=== PATIENT | female | born 1940 | race Caucasian/White ===

== ENCOUNTER 2017-05-03 19:01 | Emergency (ER) | payer MEDICARE, BC ==
[~2017-05-03] VITALS: Ht 160 cm; Wt 91.5 kg
[~2017-05-03 19:01] MED LIST: ASPI81 PO; DUONI NEB; LEVA500T PO; LEVO.125 PO; PRED10 PO; SYMB160A INH; Z.0.OXYGENDME NC
[2017-05-03 19:14] VITALS: BP 120/78; PULSE 104; RESP 22; TEMP 98; O2SAT 94
[2017-05-03 19:20] VITALS: O2SAT 94
[2017-05-03] MEDS ORDERED: SODIUM CHLORIDE 0.9% FLUSH 10 ML FLUSH IVF PRN (19:30)
--- NOTE | 2017-05-03 19:41 | PD ---
HPI Chief Complaint: Cardiac Complaint Time Seen by Provider: 19:29 Travel History International Travel<30 days: No Contact w/Intl Traveler<30days: No Traveled to known affect area: No History of Present Illness HPI Patient is a 77-year-old female presenting to emergency for evaluation of SVT. Patient felt tachycardic after eating chocolate and caffeine today. She normally doesn't eat this, she is been avoiding it due to a history of SVT. EMS reports that her heart rate was 169, she was given adenosine 6 mg IV 1, heart rate lowered to 118. Patient has a history of hypersensitivity pneumonitis, she is oxygen dependent. She has baseline shortness of breath. Her past medical history is also significant for hypothyroidism. She is a patient of Dr. Madden and Dr. Fair. She denied any chest pain, nausea, vomiting, abdominal pain, radiation of the pain, headache or dizziness. PFSH Past Medical History Arthritis: Yes (in hands and knees) Heart Rhythm Problems: Yes (SVT) Cancer: Yes (ovarian) Chemotherapy: Yes Diminished Hearing: No Genitourinary: No Immune Disorder: No Musculoskeletal: Yes Neurologic: No Psychiatric: No Reproductive: No Respiratory: Yes (Hypersensitivity Pneumonitis) Radiation Therapy: No Thyroid Disease: Yes (hypothyroidism) Past Surgical History Gynecologic Surgery: Yes (2000 oviarian cancer) Hysterectomy: Yes (hx ovarian Ca 1999) Social History Alcohol Use: No Tobacco Use: Yes (3/ PPD) Substance Use: No Allergies-Medications (Allergen,Severity, Reaction): Coded Allergies: Azithromycin (Verified Allergy, Severe, 05/03/17) Reported Meds & Prescriptions Reported Meds & Active Scripts Active Reported Flonase Nasal [place] (Fluticasone Nasal [place]) 50 Mcg/Act [place] 50 Mcg EACH NARE DAILY Latanoprost Opth Drops (Latanoprost) 0.005% Drops 1 Drop EACH EYE HS Refrigerate until opened. Align (Lactobacillus Rhamnosus (GG)) 4 Mg Cap 4 Mg PO DAILY Ibandronate (Ibandronate Sodium) 150 Mg Tab 150 Mg PO Q28D Ethambutol (Ethambutol HCl) 400 Mg Tab 1 Tab PO BID Rifabutin 150 Mg Cap 1 Cap PO BID Spiriva Respimat Inh (Tiotropium Inh) 2.5 Mcg/Act Aero 2 Puff INH DAILY 2.5 mcg = 1 inhalation Metoprolol Tartrate 25 Mg Tab 12.5 Mg PO BID Advair Diskus Inh (Fluticasone-Salmeterol Inh) 250-50 Mcg/Blist Aer 1 Puff INH BID Rinse mouth after use. Prednisone 10 Mg Tab 15 Mg PO DAILY Synthroid (Levothyroxine Sodium) 112 Mcg Tab 112 Mcg PO DAILY Sulfamethoxazole-Trimethoprim 800-160 Mg Tab 1 Tab PO ZMOWEFR Review of Systems Except as stated in HPI: all other systems reviewed are Neg Cardiovascular: Positive: Palpitations, Tachycardia Respiratory: Positive: Shortness of Breath Physical Exam Narrative GENERAL: Overweight, well-developed, alert elderly female. Resting comfortably , she does not appear to be in no acute distress. SKIN: Warm and dry. HEAD: Atraumatic. Normocephalic. EYES: Pupils equal and round. No scleral icterus. No injection or drainage. ENT: No nasal bleeding or discharge. Mucous membranes pink and moist. NECK: Trachea midline. No JVD. CARDIOVASCULAR: Tachycardic. RESPIRATORY: No accessory muscle use. Clear to auscultation. Breath sounds diminished and equal bilaterally. GASTROINTESTINAL: Abdomen soft, non-tender, nondistended. Hepatic and splenic margins not palpable. MUSCULOSKELETAL: Extremities without clubbing, cyanosis, or edema. No obvious deformities. NEUROLOGICAL: Awake and alert. No obvious cranial nerve deficits. Motor grossly within normal limits. Five out of 5 muscle strength in the arms and legs. Normal speech. PSYCHIATRIC: Appropriate mood and affect; insight and judgment normal. Data Data Last Documented VS Vital Signs Date Time Temp Pulse Resp B/P Pulse Ox O2 Delivery O2 Flow Rate FiO2 05/03/17 19:30 94 Nasal Cannula 4 05/03/17 19:14 98.0 104 22 120/78 Orders Electrocardiogram (05/03/17 19:17) Ckmb (Isoenzyme) Profile (05/03/17 19:17) Complete Blood Count With Diff (05/03/17 19:17) Comprehensive Metabolic Panel (05/03/17 19:17) Magnesium (Mg) (05/03/17 19:17) Prothrombin Time / Inr (Pt) (05/03/17 19:17) Act Partial Throm Time (Ptt) (05/03/17 19:17) Troponin I (05/03/17 19:17) Chest, Single Ap (05/03/17 19:17) Ecg Monitoring (05/03/17 19:17) Bilateral Bp Monitoring (05/03/17 19:17) Iv Access Insert/Monitor (05/03/17 19:17) Oximetry (05/03/17 19:17) Oxygen Administration (05/03/17 19:17) Sodium Chloride 0.9% Flush (Ns Flush) (05/03/17 19:30) Labs Laboratory Tests Test 05/03/17 19:30 White Blood Count 8.8 TH/MM3 Red Blood Count 4.46 MIL/MM3 Hemoglobin 12.5 GM/DL Hematocrit 37.9 % Mean Corpuscular Volume 85.1 FL Mean Corpuscular Hemoglobin 28.1 PG Mean Corpuscular Hemoglobin 33.0 % Concent Red Cell Distribution Width 14.8 % Platelet Count 222 TH/MM3 Mean Platelet Volume 7.0 FL Neutrophils (%) (Auto) 65.2 % Lymphocytes (%) (Auto) 25.5 % Monocytes (%) (Auto) 8.0 % Eosinophils (%) (Auto) 1.1 % Basophils (%) (Auto) 0.2 % Neutrophils # (Auto) 5.7 TH/MM3 Lymphocytes # (Auto) 2.2 TH/MM3 Monocytes # (Auto) 0.7 TH/MM3 Eosinophils # (Auto) 0.1 TH/MM3 Basophils # (Auto) 0.0 TH/MM3 CBC Comment DIFF FINAL Differential Comment Prothrombin Time 11.2 SEC Prothromb Time International 1.0 RATIO Ratio Activated Partial 25.9 SEC Thromboplast Time Sodium Level 141 MEQ/L Potassium Level 3.7 MEQ/L Chloride Level 106 MEQ/L Carbon Dioxide Level 24.9 MEQ/L Anion Gap 10 MEQ/L Blood Urea Nitrogen 16 MG/DL Creatinine 0.81 MG/DL Estimat Glomerular Filtration 69 ML/MIN Rate Random Glucose 95 MG/DL Calcium Level 8.7 MG/DL Magnesium Level 1.8 MG/DL Total Bilirubin 0.5 MG/DL Aspartate Amino Transf 21 U/L (AST/SGOT) Alanine Aminotransferase 17 U/L (ALT/SGPT) Alkaline Phosphatase 66 U/L Total Creatine Kinase 29 U/L Troponin I LESS THAN 0.02 NG/ML Total Protein 6.8 GM/DL Albumin 3.3 GM/DL MDM Medical Decision Making Medical Screen Exam Complete: Yes Emergency Medical Condition: Yes Interpretation(s) Last Impressions Chest X-Ray 05/03/171916 Signed Impressions: Service Date/Time: Wednesday, May 03, 2017 19:23 - CONCLUSION: Interstitial lung disease. Mitchell Goddard MD Laboratory Tests Test 05/03/17 19:30 White Blood Count 8.8 TH/MM3 Red Blood Count 4.46 MIL/MM3 Hemoglobin 12.5 GM/DL Hematocrit 37.9 % Mean Corpuscular Volume 85.1 FL Mean Corpuscular Hemoglobin 28.1 PG Mean Corpuscular Hemoglobin 33.0 % Concent Red Cell Distribution Width 14.8 % Platelet Count 222 TH/MM3 Mean Platelet Volume 7.0 FL Neutrophils (%) (Auto) 65.2 % Lymphocytes (%) (Auto) 25.5 % Monocytes (%) (Auto) 8.0 % Eosinophils (%) (Auto) 1.1 % Basophils (%) (Auto) 0.2 % Neutrophils # (Auto) 5.7 TH/MM3 Lymphocytes # (Auto) 2.2 TH/MM3 Monocytes # (Auto) 0.7 TH/MM3 Eosinophils # (Auto) 0.1 TH/MM3 Basophils # (Auto) 0.0 TH/MM3 CBC Comment DIFF FINAL Differential Comment Prothrombin Time 11.2 SEC Prothromb Time International 1.0 RATIO Ratio Activated Partial 25.9 SEC Thromboplast Time Sodium Level 141 MEQ/L Potassium Level 3.7 MEQ/L Chloride Level 106 MEQ/L Carbon Dioxide Level 24.9 MEQ/L Anion Gap 10 MEQ/L Blood Urea Nitrogen 16 MG/DL Creatinine 0.81 MG/DL Estimat Glomerular Filtration 69 ML/MIN Rate Random Glucose 95 MG/DL Calcium Level 8.7 MG/DL Magnesium Level 1.8 MG/DL Total Bilirubin 0.5 MG/DL Aspartate Amino Transf 21 U/L (AST/SGOT) Alanine Aminotransferase 17 U/L (ALT/SGPT) Alkaline Phosphatase 66 U/L Total Creatine Kinase 29 U/L Troponin I LESS THAN 0.02 NG/ML Total Protein 6.8 GM/DL Albumin 3.3 GM/DL Vital Signs Date Time Temp Pulse Resp B/P Pulse Ox O2 Delivery O2 Flow Rate FiO2 05/03/17 19:20 94 Nasal Cannula 4 05/03/17 19:20 94 Nasal Cannula 4 05/03/17 19:14 98.0 104 22 120/78 94 Differential Diagnosis SVT versus metabolic abnormality versus ACS versus other Narrative Course Patient is a 77-year-old female with a history of SVT presenting to emergency for evaluation after an episode of SVT. Patient medicated to drinking a caffeinated soda and eating dark chocolate one hour prior to the SVT episode. She normally avoids caffeinated foods because of SVT. Patient's heart rate was controlled after 1 6 mg dose of adenosine in the field. She continued to be mildly tachycardic on arrival. She had no complaints of chest pain or shortness of breath. Patient has a history of hyperactive pneumonitis and is on oxygen at home. Labs and imaging ordered and pending. Chest x-ray shows interstitial lung disease CBC is unremarkable Chemistry is unremarkable Cardiac enzymes are negative Coags are unremarkable Discussed with patient that it is preferable to keep her in the emergency Department under observation. Patient elected not to stay. AMA: The risks of leaving against medical advice without further evaluation treatment were discussed with the patient. These risks include cardiac dysfunction, cardiac dysrhythmia, possible heart attack, possible stroke or . The patient indicated understanding of these risks and appeared to have the capacity to make this decision. Diagnosis Primary Impression: Left against medical advice Disposition: 07 AGAINST MEDICAL ADVICE Avis Oliver May 03, 2017 19:41
--- NOTE | 2017-05-03 19:45 | RADRPT ---
EXAM DATE/TIME: 05/03/2017 19:23 [facility] COMPARISON: No previous studies available for comparison. INDICATIONS : Tachycardia. MEDICAL HISTORY : Chronic obstructive pulmonary disease. SURGICAL HISTORY : None. ENCOUNTER: Subsequent ACUITY: 1 day PAIN SCORE: 0/10 LOCATION: Bilateral chest FINDINGS: There is cardiomegaly and diffuse interstitial prominence. Mild hyperaeration. Multiple remote appear ing right sided rib fractures. No consolidation or effusion. CONCLUSION: Interstitial lung disease. Mitchell Goddard MD on May 03, 2017 at 19:44 Board Certified Radiologist. This report was verified electronically.
[2017-05-03 19:52] LABS: AUTOMATED NEUTROPHIL # 5.7 TH/MM3 (1.8-7.7); BASOPHIL % 0.2 % (0.0-2.0); EOSINOPHIL # 0.1 TH/MM3 (0-0.4); EOSINOPHIL % 1.1 % (0.0-4.0); HEMATOCRIT 37.9 % (35.0-46.0); HEMO FLAGS DIFF FINAL; LYMPH % 25.5 % (9.0-44.0); LYMPHOCYTE # 2.2 TH/MM3 (1.0-4.8); MEAN CELL VOLUME 85.1 FL (80.0-100.0); MEAN CORPUSCULAR HEMOGLOBIN 28.1 PG (27.0-34.0); NEUT % 65.2 % (16.0-70.0); PLATELET COUNT 222 TH/MM3 (150-450); RED BLOOD COUNT 4.46 MIL/MM3 (4.00-5.30); RED CELL DISTRIBUTION WIDTH 14.8 % (11.6-17.2); WHITE BLOOD COUNT 8.8 TH/MM3 (4.0-11.0)
[2017-05-03 20:07] LABS: APTT (PATIENT) 25.9 SEC (24.3-30.1); PROTHROMBIN TIME - PATIENT 11.2 SEC (9.8-11.6)
[2017-05-03 20:08] LABS: ANION GAP 10 MEQ/L (5-15); AST (GOT) 21 U/L (15-37); BICARBONATE 24.9 MEQ/L (21.0-32.0); BLOOD UREA NITROGEN 16 MG/DL (7-18); CHLORIDE 106 MEQ/L (98-107); GLOMERULAR FILTRATION RATE 69 ML/MIN (>89); MAGNESIUM 1.8 MG/DL (1.5-2.5); POTASSIUM 3.7 MEQ/L (3.5-5.1); SODIUM (NA) 141 MEQ/L (136-145)
[2017-05-03 20:09] LABS: ALT (GPT) 17 U/L (10-53)
[2017-05-03] MEDS ORDERED: LATA0.002 EACH EYE (20:09)
[2017-05-03] MEDS ORDERED: RIFA1CAP9 PO (20:09)
[2017-05-03] MEDS ORDERED: ETHA400T PO (20:09)
[2017-05-03] MEDS ORDERED: SYNT112T PO (20:09)
[2017-05-03] MEDS ORDERED: METO25TA3 PO (20:09)
[2017-05-03] MEDS ORDERED: SULF1TAB23 PO (20:09)
[2017-05-03] MEDS ORDERED: IBAN150T3 PO (20:09)
[2017-05-03] MEDS ORDERED: ALIG4CAP PO (20:09)
[2017-05-03] MEDS ORDERED: ADVA250A INH (20:09)
[2017-05-03] MEDS ORDERED: FLUT1SPR5 EACH NARE (20:09)
[2017-05-03] MEDS ORDERED: TIOT12.9 INH (20:09)
[2017-05-03] MEDS ORDERED: PRED10 PO (20:09)
[2017-05-03 20:13] LABS: ALKALINE PHOSPHATASE 66 U/L (45-117); TOTAL BILIRUBIN ADULT 0.5 MG/DL (0.2-1.0)
[2017-05-03 20:14] LABS: CREATINE KINASE 29 U/L (26-192)
--- NOTE | 2017-05-04 15:04 | EKG ---
Date Performed: 05/03/2017 Time Performed: 19:30:30 PTAGE: 77 years EKG: SINUS TACHYCARDIA POSSIBLE LEFT ATRIAL ENLARGEMENT PATTERN CONSISTENT WITH PULMONARY DISEAS E LEFT ANTERIOR FASCICULAR BLOCK Compared to previous tracing, the patient is now tachycardic ABNORMA L ECG PREVIOUS TRACING : 09/04/2006 10.20 DOCTOR: Lisa Toussaint Interpretating Date/Time 05/04/2017 14:58:34
== END 2017-05-03 22:35 | disposition left against medical advice (07) ==
LOC: NEPC 19:01
DX: I47.1 Supraventricular tachycardia (principal); R06.02 Shortness of breath; R00.0 Tachycardia, unspecified; E03.9 Hypothyroidism, unspecified; M13.80 Other specified arthritis, unspecified site; F17.200 Nicotine dependence, unspecified, uncomplicated; Z99.81 Dependence on supplemental oxygen; Z79.51 Long term (current) use of inhaled steroids; Z79.899 Other long term (current) drug therapy
CPT/HCPCS: 71010; 80053; 82550; 83735; 84484; 85025; 85610; 85730; 93005; 99285

== ENCOUNTER 2017-06-15 11:07 | Emergency (ER) | payer MEDICARE, BC ==
[~2017-06-15 11:07] MED LIST changes: +ADVA250A INH; +ALIG4CAP PO; -ASPI81 PO; -DUONI NEB; +ETHA400T PO; +FLUT1SPR5 EACH NARE; +IBAN150T3 PO; +LATA0.002 EACH EYE; -LEVA500T PO; -LEVO.125 PO; +METO25TA3 PO; +RIFA1CAP9 PO; +SULF1TAB23 PO; -SYMB160A INH; +SYNT112T PO; +TIOT12.9 INH; -Z.0.OXYGENDME NC
[2017-06-15 11:10] VITALS: BP 118/76; PULSE 80; RESP 22; TEMP 98.1; O2SAT 92
--- NOTE | 2017-06-15 12:27 | RADRPT ---
EXAM DATE/TIME: 06/15/2017 11:40 [facility] COMPARISON: No previous studies available for comparison. INDICATIONS : Trauma. Fall. Low back pain, worse on the right. RADIATION DOSE: 40.03 CTDIvol (mGy) MEDICAL HISTORY : Chronic obstructive pulmonary disease. Hypertension. Ovarian cancer. SURGICAL HISTORY : Hysterectomy. ENCOUNTER: Initial ACUITY: 1 day PAIN SCALE: 8/10 LOCATION: Right Lumbar spine TECHNIQUE: Volumetric scanning of the lumbar spine was performed. Multiplanar reconstructions in the sagittal, coronal and oblique axial planes were performed. Using automated exposure control and adjustment of the mA and/or kV according to patient size, radiation dose was kept as low as reasonably achievable t o obtain optimal diagnostic quality images. DICOM format image data is available electronically for review and comparison. FINDINGS: VERTEBRAE: An acute compression deformity is seen involving the L4 vertebral body. This involves the inferior en dplate. 10% loss of height. No retropulsion. An old compression deformity is seen involving the infer ior endplate of L3. Remaining vertebral body heights are maintained. ALIGNMENT: No evidence of subluxation. T12-L1: The thecal sac has a normal diameter. No evidence of disc bulge or protrusion. The neural foramina are patent bilaterally. L1-L2: The thecal sac has a normal diameter. No evidence of disc bulge or protrusion. The neural foramina are patent bilaterally. L2-L3: There is a mild broad-based disc bulge. Central canal and lateral recesses are patent. Neural foramin a are patent. Facet arthropathy changes noted. L3-L4: There is a mild broad-based disc bulge. Central canal and lateral recesses are patent. Neural foramin a are patent. Facet arthropathy changes noted. L4-L5: There is a broad-based disc bulge. Moderate ligamentum flavum hypertrophy and bony hypertrophy of the facets. Mild narrowing of the central canal. Anterior to posterior dimension of the thecal space gama sures 9 mm in the midline. Neural foramina are patent. L5-S1: There is disc space narrowing with a broad-based disc osteophyte complex that abuts the left S1 nerve root within the lateral recess. The central canal and right lateral recess are patent. Narrowing of the neural foramina bilaterally but more abundant on the right. CONCLUSION: 1. Acute mild compression deformity involving L4 without retropulsion. 2. Chronic compression deformity of L3. 3. Osteopenia. 4. Degenerative changes as detailed at each level in the above discussion. Jack Lund Jr., MD on June 15, 2017 at 12:20 Board Certified Radiologist. This report was verified electronically.
--- NOTE | 2017-06-15 12:32 | PD ---
HPI Chief Complaint: Respiratory Symptoms Time Seen by Provider: 11:18 Travel History International Travel<30 days: No Contact w/Intl Traveler<30days: No Traveled to known affect area: No History of Present Illness HPI This is a 77-year-old female who has a history of pneumonitis on 5 L of oxygen at home who presents to the emergency department having been in a restaurant when she sits down and missed the chair and landed on her buttocks injuring her back. Her back pain is constant, worse with moving, improved with rest. She denies any numbness or weakness. She did not hit her head and has no other injuries. PFSH Past Medical History Arthritis: Yes (in hands and knees) Heart Rhythm Problems: Yes (SVT) Cancer: Yes (ovarian) Cardiovascular Problems: Yes (HTN, SVT) Chemotherapy: Yes Diminished Hearing: No Endocrine: Yes Genitourinary: No Hypertension: Yes Immune Disorder: No Musculoskeletal: Yes Neurologic: No Psychiatric: No Reproductive: No Respiratory: Yes (LUNGS DEVELOP SCAR TISSUE) Radiation Therapy: No Thyroid Disease: Yes (hypothyroidism) Influenza Vaccination: Yes ?: Not Past Surgical History Gynecologic Surgery: Yes (2000 oviarian cancer) Hysterectomy: Yes (hx ovarian Ca 1999) Other Surgery: Yes Social History Alcohol Use: No Tobacco Use: No (QUIT ) Substance Use: No Allergies-Medications (Allergen,Severity, Reaction): Coded Allergies: azithromycin (Unverified Allergy, Severe, 05/30/17) Reported Meds & Prescriptions Reported Meds & Active Scripts Active Reported Flonase Nasal [place] (Fluticasone Nasal [place]) 50 Mcg/Act [place] 50 Mcg EACH NARE DAILY Latanoprost Opth Drops (Latanoprost) 0.005% Drops 1 Drop EACH EYE HS Refrigerate until opened. Align (Lactobacillus Rhamnosus (GG)) 4 Mg Cap 4 Mg PO DAILY Ibandronate (Ibandronate Sodium) 150 Mg Tab 150 Mg PO Q28D Ethambutol (Ethambutol HCl) 400 Mg Tab 1 Tab PO BID Rifabutin 150 Mg Cap 1 Cap PO BID Spiriva Respimat Inh (Tiotropium Inh) 2.5 Mcg/Act Aero 2 Puff INH DAILY 2.5 mcg = 1 inhalation Metoprolol Tartrate 25 Mg Tab 12.5 Mg PO BID Advair Diskus Inh (Fluticasone-Salmeterol Inh) 250-50 Mcg/Blist Aer 1 Puff INH BID Rinse mouth after use. Prednisone 10 Mg Tab 15 Mg PO DAILY Synthroid (Levothyroxine Sodium) 112 Mcg Tab 112 Mcg PO DAILY Sulfamethoxazole-Trimethoprim 800-160 Mg Tab 1 Tab PO ZMOWEFR Review of Systems Except as stated in HPI: all other systems reviewed are Neg Physical Exam Narrative GENERAL:Well appearing, no acute distress SKIN: Focused skin assessment warm and dry. HEAD: Atraumatic. Normocephalic. EYES: Pupils equal and round. No injection or drainage. ENT: Moist mucous membranes NECK: Trachea midline. CARDIOVASCULAR: Regular rate and rhythm. No murmur appreciated. RESPIRATORY: Clear to auscultation. Breath sounds equal bilaterally. GASTROINTESTINAL: Abdomen soft, non-tender, nondistended. MUSCULOSKELETAL: Tender to palpation over the lower lumbar spine and coccygeal area. NEUROLOGICAL: Awake and alert. No obvious cranial nerve deficits. Moving all extremities. 5 out of 5 strength in the bilateral lower extremities. PSYCHIATRIC: Appropriate mood and affect; insight and judgment normal. Data Data Last Documented VS Vital Signs Date Time Temp Pulse Resp B/P (MAP) Pulse Ox O2 Delivery O2 Flow Rate FiO2 06/15/17 12:12 93 Aerosol Mask 6.00 06/15/17 11:22 22 06/15/17 11:10 98.1 80 118/76 (90) Orders Orders Ct Lumb Spine W/O Contrast (06/15/17 ) Acetamin-Hydrocod 325-5 Mg ([place] 5-325 (06/15/17 12:45) MDM Medical Decision Making Medical Screen Exam Complete: Yes Emergency Medical Condition: Yes Interpretation(s) CT: Acute Mild compression deformity involving L4 Differential Diagnosis Compression fracture, lumbar sprain, contusion Narrative Course This is a 77-year-old female who presents to the emergency department having fallen backwards at a restaurant injuring her low back. Patient has a normal neurologic exam. CT imaging was performed which demonstrates an acute compression deformity at L4 which is mild and a chronic compression deformity at L3. She declined a TLSO brace which I think is reasonable. Patient will be discharged on Lortab and was given referral to neurosurgery of her symptoms don' t improve. Diagnosis Primary Impression: Compression fracture of L4 lumbar vertebra Qualified Codes: S32.040A - Wedge compression fracture of fourth lumbar vertebra, initial encounter for closed fracture Referrals: Brock Castellanos MD Patient Instructions: General Instructions Additional Instructions: If you develop weakness of your legs, difficulty walking, numbness of your legs or your genital or rectal area, loss of your bowel or bladder, or difficulty urinating return to the emergency department immediately. Followup with your primary care physician in one week if your symptoms have not improved. Med/Other Pt SpecificInfo: Prescription(s) given Scripts Hydrocodone-Acetaminophen (Lortab) 5-325 Mg Tab 1 TAB PO Q6H Y for PAIN, #14 TAB 0 Refills Prov: Nataliia Lau MD 06/15/17 Disposition: 01 DISCHARGE HOME Condition: Stable Nataliia Lau MD Jun 15, 2017 12:32
[2017-06-15] MEDS ORDERED: HYDR-3533 PO (12:42)
[2017-06-15] MEDS ORDERED: ACETAMINOPHEN/HYDROcodone 325 MG/5 MG TAB PO ONE (12:45)
[2017-06-15 13:05] VITALS: BP 134/73; PULSE 80; RESP 20; O2SAT 93
[2017-06-15 13:26] VITALS: RESP 20
== END 2017-06-15 13:27 | disposition home or self-care (01) ==
LOC: PHED 11:07
DX: S32.040A Wedge compression fracture of fourth lumbar vertebra, initial encounter for closed fracture (principal); Z99.81 Dependence on supplemental oxygen; I10 Essential (primary) hypertension; E03.9 Hypothyroidism, unspecified; M19.049 Primary osteoarthritis, unspecified hand; M17.9 Osteoarthritis of knee, unspecified; Z85.43 Personal history of malignant neoplasm of ovary; W07.XXXA Fall from chair, initial encounter; Y92.511 Restaurant or cafe as the place of occurrence of the external cause
CPT/HCPCS: 72131; 99284

== ENCOUNTER 2017-06-16 09:04 | Inpatient (IN) | payer MEDICARE, BC ==
[2017-06-16] VITALS (14 sets, daily range): BP systolic 121–139; BP diastolic 66–96; PULSE 64–102; RESP 18–28; TEMP 97.8–99; O2SAT 93–100
[~2017-06-16] VITALS: Ht 170.2 cm; Wt 85.0 kg
[~2017-06-16 09:04] MED LIST changes: +HYDR-3533 PO
[2017-06-16] MEDS ORDERED: SODIUM CHLORID 0.9% 500 ML INJ 500 ML IV ONE (09:30)
[2017-06-16] MEDS: SODIUM CHLORIDE 0.9% FLUSH 10 ML FLUSH IVF PRN ×2 (09:39→13:09)
[2017-06-16 09:50] LABS: BASOPHIL % 0.4 % (0.0-2.0); EOSINOPHIL # 0.1 TH/MM3 (0-0.4); HEMATOCRIT 41.3 % (35.0-46.0); HEMO FLAGS DIFF FINAL; LYMPH % 15.5 % (9.0-44.0); LYMPHOCYTE # 1.3 TH/MM3 (1.0-4.8); MEAN CELL VOLUME 84.6 FL (80.0-100.0); MEAN CORPUSCULAR HEMOGLOBIN 27.5 PG (27.0-34.0); MEAN CORPUSCULAR HGB CONC 32.5 % (32.0-36.0); MONO % 9.3 % (0.0-8.0); NEUT % 73.8 % (16.0-70.0); PLATELET COUNT 214 TH/MM3 (150-450); RED BLOOD COUNT 4.89 MIL/MM3 (4.00-5.30); RED CELL DISTRIBUTION WIDTH 14.8 % (11.6-17.2); WHITE BLOOD COUNT 8.2 TH/MM3 (4.0-11.0)
[2017-06-16 09:54] LABS: APTT (PATIENT) 26.3 SEC (24.3-30.1); PROTHROMBIN TIME - PATIENT 11.4 SEC (9.8-11.6)
--- NOTE | 2017-06-16 09:54 | RADRPT ---
EXAM DATE/TIME: 06/16/2017 09:26 [facility] COMPARISON: CHEST SINGLE AP, May 03, 2017, 19:23. INDICATIONS : Patient complains of shortness of breath MEDICAL HISTORY : None. SURGICAL HISTORY : None. ENCOUNTER: Initial ACUITY: 1 day PAIN SCORE: 0/10 LOCATION: Bilateral chest FINDINGS: Cardiomegaly with mild interstitial edema consistent with congestive failure. There is no pleural ef fusion. There is no consolidation. The portion of the bony skeleton visualized is unremarkable. CONCLUSION: Mild to moderate congestive failure. De Irizarry MD FACR on June 16, 2017 at 9:51 Board Certified Radiologist. This report was verified electronically.
[2017-06-16 10:04] LABS: ANION GAP 8 MEQ/L (5-15); AST (GOT) 24 U/L (15-37); BICARBONATE 26.4 MEQ/L (21.0-32.0); BLOOD UREA NITROGEN 9 MG/DL (7-18); CHLORIDE 104 MEQ/L (98-107); GLOMERULAR FILTRATION RATE 71 ML/MIN (>89); MAGNESIUM 2.2 MG/DL (1.5-2.5); POTASSIUM 4.1 MEQ/L (3.5-5.1); SODIUM (NA) 138 MEQ/L (136-145)
[2017-06-16 10:12] LABS: ALKALINE PHOSPHATASE 66 U/L (45-117); ALT (GPT) 27 U/L (10-53); TOTAL BILIRUBIN ADULT 0.9 MG/DL (0.2-1.0)
[2017-06-16 10:16] LABS: CREATINE KINASE 49 U/L (26-192)
--- NOTE | 2017-06-16 11:25 | RADRPT ---
EXAM DATE/TIME: 06/16/2017 11:25 [facility] COMPARISON: No previous studies available for comparison. INDICATIONS : Right hip pain. Fall. MEDICAL HISTORY : None. SURGICAL HISTORY : None. ENCOUNTER: Initial ACUITY: 3 days PAIN SCORE: 10/10 LOCATION: Right Hip FINDINGS: Examination of the right hip was performed with AP Pelvis. The primary and secondary trabecular sarah verena of the femoral neck is intact. The hip joint is of normal width without significant sclerosis or bony hypertrophy. The acetabulum is grossly intact. CONCLUSION: Degenerative changes, negative for fracture. De Irizarry MD FACR on June 16, 2017 at 11:22 Board Certified Radiologist. This report was verified electronically.
[2017-06-16] MEDS ORDERED: IOHEXOL 350 MG/ML 10 ML VIAL (for RAD DIAG) IVCONTRAST ONE (12:32)
--- NOTE | 2017-06-16 12:37 | RADRPT ---
EXAM DATE/TIME: 06/16/2017 12:19 [facility] COMPARISON: CT PULMONARY ANGIOGRAM, July 04, 2016, 19:55. INDICATIONS : Supra venticular tachardia.Evaluate for PE. IV CONTRAST: 75 cc Omnipaque 350 (iohexol) IV RADIATION DOSE: 23.12 CTDIvol (mGy) MEDICAL HISTORY : Cardiovascular disease. Hypertension. Ovarian ca with chemo SURGICAL HISTORY : Hysterectomy. ENCOUNTER: Initial ACUITY: 1 day PAIN SCALE: 6/10 LOCATION: chest TECHNIQUE: Volumetric scanning of the chest was performed using a pulmonary embolism protocol MIP images were re constructed. Using automated exposure control and adjustment of the mA and/or kV according to patien t size, radiation dose was kept as low as reasonably achievable to obtain optimal diagnostic quality images. DICOM format image data is available electronically for review and comparison. Follow-up recommendations for detected pulmonary nodules are based at a minimum on nodule size and pa tient risk factors according to Fleischner Society Guidelines. FINDINGS: Examination of the pulmonary vasculature demonstrates good filling of the main, lobar and segmental b ranches. There are no filling defects to suggest pulmonary embolism. Multiplanar reconstructions are also unremarkable. There is marked enlargement of the main and central pulmonary arteries likely refl ecting pulmonary hypertension in this patient with severe pulmonary fibrosis and honeycombing. No pul monary nodules are identified. Examination of the mediastinum demonstrates no abnormally enlarged lymph nodes by CT criteria. No axi llary or hilar abnormalities are identified. Coronary artery calcifications are not present. The visu alized upper abdomen demonstrates no abnormality. CONCLUSION: 1. No evidence of pulmonary embolism. 2. Severe pulmonary fibrosis and findings of pulmonary hypertension Denilson Merritt MD on June 16, 2017 at 12:33 Board Certified Radiologist. This report was verified electronically.
--- NOTE | 2017-06-16 12:59 | PD ---
HPI Chief Complaint: Cardiac Complaint Time Seen by Provider: 09:21 Travel History International Travel<30 days: No Contact w/Intl Traveler<30days: No Traveled to known affect area: No History of Present Illness HPI Patient is a 77-year-old female who is brought to emergency room by EMS with multiple complaints. She does , patient fell yesterday and landed onto her buttocks, she was seen at [facility] yesterday and was discovered to have L4 compression fracture. reports that this morning around 1 AM , patient had a hard time getting out of bed to use the restroom. Reports that he tried getting around 7 AM this morning, reports that she had a hard time doing this as she had severe pain to her back. Her called EMS as he was not able to ambulate here. On arrival, patient was found to be in SVT with a heart rate of 168. Patient was given a dose of adenosine 6 mg, she returned to sinus tachycardia. Patient reports that she has history of tachycardia and is currently taking metoprolol. Her senior contracts administrator is Dr. Fair. Patient reports that she currently is on Bactrim as prophylaxis as she was diagnosed with Mycobacterium avium recent cultures have been negative but her doctors told her that she would be on these antibiotics for 9 Months. Patient denies chest pain or shortness breath at this time. Patient with no other complaints. PFSH Past Medical History Arthritis: Yes (in hands and knees) Heart Rhythm Problems: Yes (SVT) Cancer: Yes (ovarian) Cardiovascular Problems: Yes (TACHYCARDIA) Chemotherapy: Yes Diminished Hearing: No Endocrine: Yes Genitourinary: No Hypertension: Yes Immune Disorder: No Musculoskeletal: Yes Neurologic: No Psychiatric: No Reproductive: No Respiratory: Yes (PT HAS MYCOBACTERIUM AVIUM HX AND DX OF HYPERSENSITIVY PNEUMONITIS) Radiation Therapy: No Thyroid Disease: Yes (hypothyroidism) Tetanus Vaccination: < 5 Years Influenza Vaccination: Yes ?: Not Past Surgical History Gynecologic Surgery: Yes (2000 oviarian cancer) Hysterectomy: Yes (hx ovarian Ca 1999) Other Surgery: Yes Social History Alcohol Use: No Tobacco Use: No (QUIT ) Substance Use: No (PT DENIES) Allergies-Medications (Allergen,Severity, Reaction): Coded Allergies: azithromycin (Unverified Allergy, Severe, RASH, 06/16/17) Reported Meds & Prescriptions Reported Meds & Active Scripts Active Lortab (Hydrocodone-Acetaminophen) 5-325 Mg Tab 1 Tab PO Q6H PRN Reported Flonase Nasal [place] (Fluticasone Nasal [place]) 50 Mcg/Act [place] 50 Mcg EACH NARE DAILY Latanoprost Opth Drops (Latanoprost) 0.005% Drops 1 Drop EACH EYE HS Refrigerate until opened. Ibandronate (Ibandronate Sodium) 150 Mg Tab 150 Mg PO Q28D Ethambutol (Ethambutol HCl) 400 Mg Tab 1 Tab PO BID Rifabutin 150 Mg Cap 1 Cap PO BID Spiriva Respimat Inh (Tiotropium Inh) 2.5 Mcg/Act Aero 2 Puff INH DAILY 2.5 mcg = 1 inhalation Metoprolol Tartrate 25 Mg Tab 25 Mg PO BID Advair Diskus Inh (Fluticasone-Salmeterol Inh) 250-50 Mcg/Blist Aer 1 Puff INH BID Rinse mouth after use. Prednisone 10 Mg Tab 15 Mg PO DAILY Synthroid (Levothyroxine Sodium) 112 Mcg Tab 112 Mcg PO DAILY Sulfamethoxazole-Trimethoprim 800-160 Mg Tab 1 Tab PO [id number] Review of Systems General / Constitutional: No: Fever Eyes: No: Visual changes HENT: No: Headaches Cardiovascular: Positive: Palpitations, Irregular Rhythm, Tachycardia, No: Chest Pain or Discomfort Respiratory: Positive: Shortness of Breath Gastrointestinal: No: Abdominal Pain Genitourinary: No: Dysuria Musculoskeletal: Positive: Pain Skin: No Rash Neurologic: No: Weakness Psychiatric: No: Depression Endocrine: No: Polydipsia Hematologic/Lymphatic: No: Easy Bruising Physical Exam Narrative GENERAL: Nondistressed SKIN: Focused skin assessment warm/dry. HEAD: Atraumatic. Normocephalic. EYES: Pupils equal and round. No scleral icterus. No injection or drainage. ENT: No nasal bleeding or discharge. Mucous membranes pink and moist. NECK: Trachea midline. No JVD. CARDIOVASCULAR: Tachycardic No murmur appreciated. RESPIRATORY: No accessory muscle use. Clear to auscultation. Breath sounds equal bilaterally. GASTROINTESTINAL: Abdomen soft, non-tender, nondistended. Hepatic and splenic margins not palpable. MUSCULOSKELETAL: No obvious deformities. No clubbing. No cyanosis. No edema. Patient with lumbar tenderness on exam, normal range of motion to the left leg as well as right lower extremity NEUROLOGICAL: Awake and alert. No obvious cranial nerve deficits. Motor grossly within normal limits. Normal speech. PSYCHIATRIC: Appropriate mood and affect; insight and judgment normal. Data Data Last Documented VS Vital Signs Date Time Temp Pulse Resp B/P (MAP) Pulse Ox O2 Delivery O2 Flow Rate FiO2 06/16/17 13:00 98.0 95 24 128/91 (103) 99 Non-Rebreather 12.00 100 Orders Orders Electrocardiogram (06/16/17 09:21) B-Type Natriuretic Peptide (06/16/17:21) Ckmb (Isoenzyme) Profile (06/16/17 09:21) Complete Blood Count With Diff (06/16/17:21) Comprehensive Metabolic Panel (06/16/17:21) Magnesium (Mg) (06/16/17:21) Prothrombin Time / Inr (Pt) (06/16/17:21) Act Partial Throm Time (Ptt) (06/16/17 09:21) Troponin I (06/16/17:21) Lipase (06/16/17 09:21) Chest, Single Ap (06/16/17 09:21) Ecg Monitoring (06/16/17 09:21) Iv Access Insert/Monitor (06/16/17 09:21) Oximetry (06/16/17 09:21) Sodium Chloride 0.9% Flush (Ns Flush) (06/16/17 09:30) Sodium Chlorid 0.9% 500 Ml Inj (Ns 500 M (06/16/17 09:30) Hip, Uni(Ap&Lat) W Ap Pelvis (06/16/17 ) Ct Pulmonary Angiogram (06/16/17 11:19) Iohexol 350 Inj (Omnipaque 350 Inj) (06/16/17 12:32) Levothyroxine (Synthroid) (06/16/17 13:00) Prednisone (Deltasone) (06/16/17 13:00) Metoprolol Tartrate (Lopressor) (06/16/17 13:00) Morphine Inj (Morphine Inj) (06/16/17 13:00) Labs Laboratory Tests Test 06/16/17 09:30 White Blood Count 8.2 TH/MM3 Red Blood Count 4.89 MIL/MM3 Hemoglobin 13.4 GM/DL Hematocrit 41.3 % Mean Corpuscular Volume 84.6 FL Mean Corpuscular Hemoglobin 27.5 PG Mean Corpuscular Hemoglobin Concent 32.5 % Red Cell Distribution Width 14.8 % Platelet Count 214 TH/MM3 Mean Platelet Volume 6.9 FL Neutrophils (%) (Auto) 73.8 % Lymphocytes (%) (Auto) 15.5 % Monocytes (%) (Auto) 9.3 % Eosinophils (%) (Auto) 1.0 % Basophils (%) (Auto) 0.4 % Neutrophils # (Auto) 6.0 TH/MM3 Lymphocytes # (Auto) 1.3 TH/MM3 Monocytes # (Auto) 0.8 TH/MM3 Eosinophils # (Auto) 0.1 TH/MM3 Basophils # (Auto) 0.0 TH/MM3 CBC Comment DIFF FINAL Differential Comment Prothrombin Time 11.4 SEC Prothromb Time International Ratio 1.0 RATIO Activated Partial Thromboplast Time 26.3 SEC Blood Urea Nitrogen 9 MG/DL Creatinine 0.79 MG/DL Random Glucose 89 MG/DL Total Protein 7.1 GM/DL Albumin 3.4 GM/DL Calcium Level 8.7 MG/DL Magnesium Level 2.2 MG/DL Alkaline Phosphatase 66 U/L Aspartate Amino Transf (AST/SGOT) 24 U/L Alanine Aminotransferase (ALT/SGPT) 27 U/L Total Bilirubin 0.9 MG/DL Sodium Level 138 MEQ/L Potassium Level 4.1 MEQ/L Chloride Level 104 MEQ/L Carbon Dioxide Level 26.4 MEQ/L Anion Gap 8 MEQ/L Estimat Glomerular Filtration Rate 71 ML/MIN Total Creatine Kinase 49 U/L Troponin I LESS THAN 0.02 NG/ML B-Type Natriuretic Peptide 72 PG/ML Lipase 121 U/L [facility] Medical Decision Making Medical Screen Exam Complete: Yes Emergency Medical Condition: Yes Interpretation(s) EKG at 09: Sinus tachycardia 107 bpm, QT/QTc 313/376 Vital Signs Date Time Temp Pulse Resp B/P (MAP) Pulse Ox O2 Delivery O2 Flow Rate FiO2 06/16/17 10:33 97.9 100 24 127/84 (98) 98 Room Air 100 06/16/17 09:30 28 98 Non-Rebreather 12.00 06/16/17 09:13 103 28 99 Non-Rebreather 12.00 06/16/17 09:12 97.8 102 28 133/76 (95) 99 Laboratory Tests Test 06/16/17 09:30 White Blood Count 8.2 TH/MM3 (4.0-11.0) Red Blood Count 4.89 MIL/MM3 (4.00-5.30) Hemoglobin 13.4 GM/DL (11.6-15.3) Hematocrit 41.3 % (35.0-46.0) Mean Corpuscular Volume 84.6 FL (80.0-100.0) Mean Corpuscular Hemoglobin 27.5 PG (27.0-34.0) Mean Corpuscular Hemoglobin Concent 32.5 % (32.0-36.0) Red Cell Distribution Width 14.8 % (11.6-17.2) Platelet Count 214 TH/MM3 (150-450) Mean Platelet Volume 6.9 FL (7.0-11.0) Neutrophils (%) (Auto) 73.8 % (16.0-70.0) Lymphocytes (%) (Auto) 15.5 % (9.0-44.0) Monocytes (%) (Auto) 9.3 % (0.0-8.0) Eosinophils (%) (Auto) 1.0 % (0.0-4.0) Basophils (%) (Auto) 0.4 % (0.0-2.0) Neutrophils # (Auto) 6.0 TH/MM3 (1.8-7.7) Lymphocytes # (Auto) 1.3 TH/MM3 (1.0-4.8) Monocytes # (Auto) 0.8 TH/MM3 (0-0.9) Eosinophils # (Auto) 0.1 TH/MM3 (0-0.4) Basophils # (Auto) 0.0 TH/MM3 (0-0.2) CBC Comment DIFF FINAL Differential Comment Prothrombin Time 11.4 SEC (9.8-11.6) Prothromb Time International Ratio 1.0 RATIO Activated Partial Thromboplast Time 26.3 SEC (24.3-30.1) Blood Urea Nitrogen 9 MG/DL (7-18) Creatinine 0.79 MG/DL (0.50-1.00) Random Glucose 89 MG/DL (74-106) Total Protein 7.1 GM/DL (6.4-8.2) Albumin 3.4 GM/DL (3.4-5.0) Calcium Level 8.7 MG/DL (8.5-10.1) Magnesium Level 2.2 MG/DL (1.5-2.5) Alkaline Phosphatase 66 U/L (45-117) Aspartate Amino Transf (AST/SGOT) 24 U/L (15-37) Alanine Aminotransferase (ALT/SGPT) 27 U/L (10-53) Total Bilirubin 0.9 MG/DL (0.2-1.0) Sodium Level 138 MEQ/L (136-145) Potassium Level 4.1 MEQ/L (3.5-5.1) Chloride Level 104 MEQ/L (98-107) Carbon Dioxide Level 26.4 MEQ/L (21.0-32.0) Anion Gap 8 MEQ/L (5-15) Estimat Glomerular Filtration Rate 71 ML/MIN (>89) Total Creatine Kinase 49 U/L (26-192) Troponin I LESS THAN 0.02 NG/ML B-Type Natriuretic Peptide 72 PG/ML (0-100) Lipase 121 U/L (73-393) Last Impressions CT Angiography 06/16/17 1119 Signed Impressions: Service Date/Time: Friday, June 16, 2017 12:19 - CONCLUSION: 1. No evidence of pulmonary embolism. 2. Severe pulmonary fibrosis and findings of pulmonary hypertension Denilson Merritt MD Chest X-Ray 06/16/17 0921 Signed Impressions: Service Date/Time: Friday, June 16, 2017 09:26 - CONCLUSION: Mild to moderate congestive failure. De Irizarry MD FACR Hip and Pelvis X-Ray 06/16/17 0000 Signed Impressions: Service Date/Time: Friday, June 16, 2017 11:25 - CONCLUSION: Degenerative changes, negative for fracture. De Irizarry MD FACR Differential Diagnosis Differential includes PE, pneumonia, SVT, electrolyte abnormality, arrhythmia, ACS Narrative Course Upon presentation to the emergency room, patient was placed on a clinical research monitor. Patient was not found to be in SVT rather sinus tachycardia. Patient has history of COPD, she is a past smoker, on 5 L oxygen of nasal cannula at all times. Patient at this time complains of shortness of breath as well as palpitations. Reports that this is the third time she has had an episode of SVT , patient unsure why she keeps on going into SVT. Laboratory reviewed, patient with increased RR as well as tachycardia. CT Pulmonary Angiogram ordered to Rule out PE. Last Impressions CT Angiography 06/16/17 1119 Signed Impressions: Service Date/Time: Friday, June 16, 2017 12:19 - CONCLUSION: 1. No evidence of pulmonary embolism. 2. Severe pulmonary fibrosis and findings of pulmonary hypertension Denilson Merritt MD Chest X-Ray 06/16/17 0921 Signed Impressions: Service Date/Time: Friday, June 16, 2017 09:26 - CONCLUSION: Mild to moderate congestive failure. De Irizarry MD FACR Hip and Pelvis X-Ray 06/16/17 0000 Signed Impressions: Service Date/Time: Friday, June 16, 2017 11:25 - CONCLUSION: Degenerative changes, negative for fracture. De Irizarry MD FACR Patient with no PE this time, will made for SVT and shortness of breath. Patient does appear hypoxic, her pulse ox was 85% on 7 L NC. She normally uses 5L NC Case reviewed with Dr. Macedo who accepts pt to their service Critical Care Narrative Aggregate critical care time was 30 minutes. Time to perform other separately billable procedures was not included in the critical care time. My time did not include minutes spent treating any other patients simultaneously or on activities that did not directly contribute to the patient's treatment. The services I provided to this patient were to treat and/or prevent clinically significant deterioration that could result in: , decompensation, deterioration I provided critical care services requiring my management, as noted below: Chart data review, documentation time, medication orders and management, vital sign assessments/reviewing monitor data, ordering and reviewing lab tests, ordering and interpreting/reviewing x-rays and diagnostic studies, care of the patient and discussion of the patient with the admitting physicians. Diagnosis Primary Impression: SVT (supraventricular tachycardia) Additional Impression: Hypoxia Admitting Information Admitting Physician Requests: Observation Brandi Arteaga DO Jun 16, 2017 12:59
[2017-06-16] MEDS ORDERED: predniSONE 10 MG TAB PO ONE (13:00)
[2017-06-16] MEDS ORDERED: LEVOTHYROXINE SODIUM 125 MCG TAB PO ONE (13:00)
[2017-06-16] MEDS ORDERED: METOPROLOL TARTRATE 25 MG TAB PO ONE (13:00)
[2017-06-16] MEDS ORDERED: MORPHINE SULFATE 4 MG/ML INJ IV PUSH ONE (13:00)
[2017-06-16] MEDS ORDERED: SODIUM CHLORIDE 0.9% FLUSH 10 ML FLUSH IV FLUSH PRN (13:30)
[2017-06-16] MEDS ORDERED: RESP: ALBUTEROL 2.5 MG/3 ML NEB (PRN) INH (13:30)
[2017-06-16] MEDS: HEPARIN SODIUM - SQ 10,000 UNITS/ML VIAL SQ SCH (14:59)
[2017-06-16] MEDS ORDERED: methylPREDNISolone SOD SUCC 125 MG/2 ML VIAL IVP SCH (15:00)
--- NOTE | 2017-06-16 16:01 | HHI.HP ---
[facility] Physician Shantel Madden MD Admission Diagnosis SVT, hypoxia Diagnoses: Chief Complaint: Back pain Travel History International Travel<30 Days: No Contact w/Intl Traveler <30 Da: No Traveled to Known Affected Are: No History of Present Illness Written by Butch Ferrara, acting as scribe for Dr. Machuca on 06/16/17 at 16:01. 77-year-old female with past medical history of COPD, hypothyroidism, SVT, Mycobacterium avium infection, hypertensive pneumonitis who presented for back pain. The patient states that yesterday she noticed a chair when she tried to sit and landed on her backside. She went to the ED and was found to have a mild compression fracture at L4. She was neurologically intact and the decision was made to have her follow-up as outpatient with neurosurgery. However, overnight the patient had worsening symptoms and this morning woke up and was unable to move her right hip secondary to pain and thus she called the paramedics. When the paramedics arrived the patient was noted to be in SVT, which she has a history of, with a heart rate of 168 and received adenosine. The patient denies any symptoms from this. She states that her breathing is at baseline, normally on 5 L O2 at home. She denies any chest pain. Her resource analyst is Dr. Fair. Her director market intelligence is Dr. Lamb. At this time other than the lower back and right hip pain, the patient has no acute complaints and feels well. She would be agreeable to short-term rehabilitation if she is unable to ambulate. Review of Systems Except as stated in HPI: all other systems reviewed are Neg Past Family Social History Past Medical History COPD on home oxygen Hypothyroidism SVT Mycobacterium avium infection Hypertensive pneumonitis Osteoporosis Past Surgical History History of surgery for ovarian cancer Lung biopsies Reported Medications Reported Meds & Active Scripts Active Lortab (Hydrocodone-Acetaminophen) 5-325 Mg Tab 1 Tab PO Q6H PRN Reported Flonase Nasal [place] (Fluticasone Nasal [place]) 50 Mcg/Act [place] 50 Mcg EACH NARE DAILY Latanoprost Opth Drops (Latanoprost) 0.005% Drops 1 Drop EACH EYE HS Refrigerate until opened. Ibandronate (Ibandronate Sodium) 150 Mg Tab 150 Mg PO Q28D Ethambutol (Ethambutol HCl) 400 Mg Tab 1 Tab PO BID Rifabutin 150 Mg Cap 1 Cap PO BID Spiriva Respimat Inh (Tiotropium Inh) 2.5 Mcg/Act Aero 2 Puff INH DAILY 2.5 mcg = 1 inhalation Metoprolol Tartrate 25 Mg Tab 25 Mg PO BID Advair Diskus Inh (Fluticasone-Salmeterol Inh) 250-50 Mcg/Blist Aer 1 Puff INH BID Rinse mouth after use. Prednisone 10 Mg Tab 15 Mg PO DAILY Synthroid (Levothyroxine Sodium) 112 Mcg Tab 112 Mcg PO DAILY Sulfamethoxazole-Trimethoprim 800-160 Mg Tab 1 Tab PO ZMOWEFR Allergies: Coded Allergies: azithromycin (Verified Allergy, Severe, RASH, 06/16/17) Active Ordered Medications Current Medications Medications (Trade) Dose Ordered Sig/Brendon Route Start Time Stop Time Status Last Admin (Myambutol) 400 mg BID PO 06/16/17 21:00 (Xalatan 0.005% Opth Soln) 1 drop HS EACH EYE 06/16/17 21:00 (Synthroid) 112 mcg DAILY@0600 PO 06/17/17 06:00 (Lopressor) 25 mg BID PO 06/16/17 21:00 (Bactrim Ds 800-160 Mg) 1 tab EVERY OTHER DAY PO 06/18/17 09:00 (Flonase Alexandru Spr) 1 spray DAILY NASAL 06/17/17 09:00 (Symbicort 160-4.5 Inh) 1 puff BID INH 06/16/17 21:00 Patient Own Medication PT OWN MED: ibandron... Q28D PO 07/13/17 09:00 Patient Own Medication PT OWN MED: RIFABU... BID PO 06/16/17 21:00 Future Hold (Spiriva Inh) 18 mcg DAILY INH 06/17/17 09:00 (NS Flush) 2 ml BID IV FLUSH 06/16/17 21:00 (NS Flush) 2 ml UNSCH PRN IV FLUSH 06/16/17 13:30 (Albuterol Neb) 2.5 mg Q2HR NEB PRN INH 06/16/17 13:30 (SoluMEDROL INJ) 60 mg Q6H IVP 06/16/17 15:00 06/16/17 14:59 (Heparin Inj) 5,000 units Q12H SQ 06/16/17 15:00 06/16/17 14:59 ([place] 5-325 Mg) 1 tab Q4H PRN PO 06/16/17 13:30 (Morphine Inj) 2 mg Q3H PRN IV PUSH 06/16/17 13:30 Family History Father of lung cancer Mother from heart complications from scarlet fever Social History Quit smoking 10 years ago, prior to that smoked half pack per day for 40 years Denies any alcohol use Physical Exam Vital Signs Vital Signs Date Time Temp Pulse Resp B/P (MAP) Pulse Ox O2 Delivery O2 Flow Rate FiO2 06/16/17 15:59 97.8 94 22 132/66 (88) 98 Non-Rebreather 100 06/16/17 13:13 22 06/16/17 13:00 98.0 95 24 128/91 (103) 99 Non-Rebreather 12.00 100 06/16/17 11:30 97.8 98 24 130/96 (107) 100 Non-Rebreather 12.00 100 06/16/17 10:33 97.9 100 24 127/84 (98) 98 Non-Rebreather 100 06/16/17 09:30 28 98 Non-Rebreather 12.00 06/16/17 09:13 103 28 99 Non-Rebreather 12.00 06/16/17 09:12 97.8 102 28 133/76 (95) 99 Physical Exam GENERAL: Well-developed well-nourished. In no acute distress. SKIN: Warm and dry. No lesions noted. HEENT: Normocephalic. Pupils equal and round. Mucous membranes pink and moist. CARDIOVASCULAR: Regular rate and rhythm. No murmur appreciated. RESPIRATORY: No accessory muscle use. Clear to auscultation. Decreased air movement. Possible left base rhonchi. GASTROINTESTINAL: Abdomen soft, non-tender, nondistended. Bowel sounds x4. MUSCULOSKELETAL: No obvious deformities. No clubbing or cyanosis. No edema. NEUROLOGICAL: Awake and alert. Motor grossly within normal limits. Normal speech. PSYCHIATRIC: Appropriate mood and affect; insight and judgment normal. Laboratory Laboratory Tests Test 06/16/17 09:30 White Blood Count 8.2 Red Blood Count 4.89 Hemoglobin 13.4 Hematocrit 41.3 Mean Corpuscular Volume 84.6 Mean Corpuscular Hemoglobin 27.5 Mean Corpuscular Hemoglobin Concent 32.5 Red Cell Distribution Width 14.8 Platelet Count 214 Mean Platelet Volume 6.9 Neutrophils (%) (Auto) 73.8 Lymphocytes (%) (Auto) 15.5 Monocytes (%) (Auto) 9.3 Eosinophils (%) (Auto) 1.0 Basophils (%) (Auto) 0.4 Neutrophils # (Auto) 6.0 Lymphocytes # (Auto) 1.3 Monocytes # (Auto) 0.8 Eosinophils # (Auto) 0.1 Basophils # (Auto) 0.0 CBC Comment DIFF FINAL Differential Comment Prothrombin Time 11.4 Prothromb Time International Ratio 1.0 Activated Partial Thromboplast Time 26.3 Blood Urea Nitrogen 9 Creatinine 0.79 Random Glucose 89 Total Protein 7.1 Albumin 3.4 Calcium Level 8.7 Magnesium Level 2.2 Alkaline Phosphatase 66 Aspartate Amino Transf (AST/SGOT) 24 Alanine Aminotransferase (ALT/SGPT) 27 Total Bilirubin 0.9 Sodium Level 138 Potassium Level 4.1 Chloride Level 104 Carbon Dioxide Level 26.4 Anion Gap 8 Estimat Glomerular Filtration Rate 71 Total Creatine Kinase 49 Troponin I LESS THAN 0.02 B-Type Natriuretic Peptide 72 Lipase 121 Result Diagram: 06/16/1730 06/16/[address] Angiography 06/16/17 1119 Signed Impressions: Service Date/Time: Friday, June 16, 2017 12:19 - CONCLUSION: 1. No evidence of pulmonary embolism. 2. Severe pulmonary fibrosis and findings of pulmonary hypertension Denilson Merritt MD Chest X-Ray 06/16/17 0921 Signed Impressions: Service Date/Time: Friday, June 16, 2017 09:26 - CONCLUSION: Mild to moderate congestive failure. De Irizarry MD FACR Hip and Pelvis X-Ray 06/16/17 0000 Signed Impressions: Service Date/Time: Friday, June 16, 2017 11:25 - CONCLUSION: Degenerative changes, negative for fracture. De Irizarry MD FACR Caprini VTE Risk Assessment Caprini VTE Risk Assessment: Mod/High Risk (score >= 2) Caprini Risk Assessment Model Point Value = 1 Point Value = 2 Point Value = 3 Point Value = 5 Age 41-60 Minor surgery BMI > 25 kg/m2 Swollen legs Varicose veins or History of unexplained or recurrent spontaneous Oral contraceptives or hormone replacement Sepsis (< 1 month) Serious lung disease, including pneumonia (< 1 month) Abnormal pulmonary function Acute myocardial infarction Congestive heart failure (< 1 month) History of inflammatory bowel disease Medical patient at bed rest Age 61-74 Arthroscopic surgery Major open surgery (> 45 min) Laparoscopic surgery (> 45 min) Malignancy Confined to bed (> 72 hours) Immobilizing plaster cast Central venous access Age >= 75 History of VTE Family history of VTE Factor V Leiden Prothrombin [id number] Lupus anticoagulant Anticardiolipin antibodies Elevated serum homocysteine Heparin-induced thrombocytopenia Other congenital or acquired thrombophilia Stroke (< 1 month) Elective arthroplasty Hip, pelvis, or leg fracture Acute spinal cord injury (< 1 month) Prophylaxis Regimen Total Risk Factor Score Risk Level Prophylaxis Regimen 0-1 Low Early ambulation 2 Moderate Order ONE of the following: *Sequential Compression Device (SCD) *Heparin 5000 units SQ BID 3-4 Higher Order ONE of the following medications: *Heparin 5000 units SQ TID *Enoxaparin/Lovenox 40 mg SQ daily (WT < 150 kg, CrCl > 30 mL/min) *Enoxaparin/Lovenox 30 mg SQ daily (WT < 150 kg, CrCl > 10-29 mL/min) *Enoxaparin/Lovenox 30 mg SQ BID (WT < 150 kg, CrCl > 30 mL/min) AND/OR *Sequential Compression Device (SCD) 5 or more Highest Order ONE of the following medications: *Heparin 5000 units SQ TID (Preferred with Epidurals) *Enoxaparin/Lovenox 40 mg SQ daily (WT < 150 kg, CrCl > 30 mL/min) *Enoxaparin/Lovenox 30 mg SQ daily (WT < 150 kg, CrCl > 10-29 mL/min) *Enoxaparin/Lovenox 30 mg SQ BID (WT < 150 kg, CrCl > 30 mL/min) AND *Sequential Compression Device (SCD) Assessment and Plan Assessment and Plan 77-year-old female with past medical history of COPD, hypothyroidism, SVT, Mycobacterium avium infection, hypertensive pneumonitis who presented for back pain and found to have SVT Intractable lower back pain secondary to compression fracture: Reviewed: Lumbar CT from 06/15 showed acute mild compression deformity involving L4 without retropulsion, chronic compression deformity of L3. -Pain control with oral and intravenous narcotics as needed -PT eval SVT: Converted to sinus tachycardia after receiving adenosine in the field. Heart rate currently in NSR on monitor. -Continue home metoprolol -Monitor on telemetry -Consult patient's resource analyst Hypoxia: Possibly secondary to SVT or severe chronic lung disease. O2 saturation was 85% on 7 L O2. Currently satting well on nonrebreather. Reviewed: Chest x-ray shows mild to moderate congestive failure. BNP 72. Pulmonary angiogram shows no PE, severe pulmonary fibrosis and findings of pulmonary hypertension. -Nebs as needed -O2 as needed -IV Solu-Medrol -Symbicort -Consult pulmonology History of mycobacterial avium infection: Follows with ID, Dr. Shah -Continue Bactrim, ethambutol, rifabutin Hypothyroidism: Chronic, stable. -Continue home levothyroxine dose DVT prophylaxis: Heparin This note was transcribed by scribmarilin [Josias Rae]. I, Dr. Shane Machuca personally performed the history, physical exam, and medical decision making; and confirmed the accuracy of the information in the transcribed note. Authenticated by Dr. Shane Machuca on 06/16/17 at 1610. Code Status Full code Discussed Condition With Patient, ED staff Butch Ferrara Jun 16, 2017 16:01 Shane Machuca MD Jun 16, 2017 21:08
--- NOTE | 2017-06-16 20:09 | EKG ---
Date Performed: 06/16/2017 Time Performed: 09:14:15 PTAGE: 77 years EKG: SINUS TACHYCARDIA PATTERN CONSISTENT WITH PULMONARY DISEASE LEFT ANTERIOR FASCICULAR BLOCK MINIMAL ST DEPRESSION ABNORMAL ECG PREVIOUS TRACING : 05/03/2017 19.30 Compared to prior tracing no significant change DOCTOR: Suresh Delarosa Interpretating Date/Time 06/16/2017 20:08:05
[2017-06-16] MEDS: RESP: ALBUTEROL 2.5 MG/IPRATROPIUM 0.5 MG NEB (SCH) NEB (20:17)
[2017-06-16] MEDS ORDERED: RIFABUTIN 150 MG PO SCH (21:00)
[2017-06-16] MEDS: ETHAMBUTOL HCL 400 MG TAB PO SCH (21:00)
[2017-06-16] MEDS: RIFAMPIN 150 MG CAP PO SCH (21:04)
[2017-06-16] MEDS: LATANOPROST 0.005% OPHT SOLN 2.5 ML BTL EACH EYE SCH (21:04)
[2017-06-16] MEDS: BUDESONIDE-FORMOTEROL 160/4.5 MCG INHALER INH SCH (21:05)
[2017-06-16] MEDS: methylPREDNISolone SOD SUCC 40 MG/1 ML VIAL IV SCH (21:06)
[2017-06-16] MEDS: METOPROLOL TARTRATE 25 MG TAB PO SCH (21:06)
[2017-06-16] MEDS: ACETAMINOPHEN/HYDROcodone 325 MG/5 MG TAB PO PRN (21:06)
[2017-06-16] MEDS: SODIUM CHLORIDE 0.9% FLUSH 10 ML FLUSH IV FLUSH SCH (21:07)
--- NOTE | 2017-06-16 22:30 | MB ---
cc: Angel SCHWARZ M.D. DATE OF CONSULTATION 06/16/17 REASON FOR CONSULTATION Pulmonary fibrosis and history of chronic bronchitis with CYNTHIA infection. HISTORY OF PRESENT ILLNESS This is a 77-year-old white female who has a longstanding history of pulmonary fibrosis, has been on home oxygen at 5-6 liters nasal cannula. The patient apparently had a fall backwards when she tried to sit on a chair and suffered an injury to her lower back which was noted to be a compression fracture at L4. The patient was due to see neurosurgery as an outpatient, but due to increasing symptoms of severe pain and sciatica on the right side and pain in her hip as well, the brought her via EVAC to the emergency room and she is she was subsequently admitted. The patient has received pain medications. She has been placed on a non-rebreather mask. The patient presently also is on nebulizer treatments four times a day. She has no chest pains. She does have shortness of breath with a cough but does not bring up any sputum. She has mild wheezing and in the past she has been on the Advair inhaler as well as Spiriva as well as a nebulizer with albuterol solution in addition to the oxygen. The patient has a history of Mycobacterium Avium infection of the lung for which she takes Rifampin and ethambutol and was not able to tolerate Zithromax. PAST MEDICAL HISTORY 1. History of pulmonary fibrosis and severe hypoxia and bronchiectasis, is on home oxygen. 2. Hypothyroidism, 3. History of hypertension 4. History of osteoporosis 5. History of SVT PAST SURGICAL HISTORY 1. Ovarian cancer surgery 2. History of lung biopsy MEDICATIONS 1. Lortab 5/325 p.r.n. 2. Ethambutol 800 mg daily 3. 150 mg b.i.d. 4. Spiriva rescue mask one capsule a day 5. Metoprolol 25 mg b.i.d. 6. Advair Disk 250/51 puffs b.i.d. 7. Prednisone 15 mg a day, 8. Synthroid 112 mcg daily, 9. Bactrim DS one every other day. ALLERGIES ZITHROMAX FAMILY HISTORY History for lung cancer in her father. Mother had heart disease. HABITS The patient smoked half a pack per day for 40 years and then quit. No significant alcohol. REVIEW OF SYSTEMS The patient has had weight gain. She has back pain. She has wheezing and shortness of breath and orthopnea. She has coughing spells. She has no abdominal pains. No urinary symptoms. She has some anxiety attacks and denies skin lesions. PHYSICAL EXAMINATION GENERAL: This is a moderately obese elderly white female who is alert, pale and dyspneic. She has mild clubbing. No peripheral edema. VITAL SIGNS: Blood pressure 130/70, pulse is 96, respirations 24, temperature 97.5. HEENT: Head normocephalic. Pupils are reactive. Tongue is dry. Throat is clear. Nasal mucosa injected. NECK: Supple. No venous distension. No thyromegaly or lymphadenopathy. CHEST: Decreased breath sounds at the bases with fine basilar crackles. HEART: The heart sounds are irregular S1 and S2 with no murmur. No S3 gallop. ABDOMEN: Soft, protuberant without masses. No organomegaly or tenderness. EXTREMITIES: Varicosities and no edema. Peripheral pulses were decreased NEUROLOGIC: Reflexes are 1+ with no gross motor deficits. Cranial nerves grossly intact. SKIN: No lesions observed. IMPRESSION 1. Extensive pulmonary fibrosis with hypoxemia. 2. History of Mycobacterium Avium infection of the lungs 3. Lumbar compression fractures with radiculopathy 4. Hypothyroidism PLAN The patient will be placed on O2 at 5 liters nasal cannula or a Venti-mask at 50% to maintain sats over 92. We will add Solu-Medrol 40 mg IV q.6 h. Resume ethambutol 400 mg b.i.d. and Rifampin 150 mg b.i.d. and sulfamethoxazole 1 tablet every other day. The patient will be placed on DuoNeb solution with a nebulizer q.i.d. Also continue pain medications including [place] 5/325 one q. six p.r.n. Follow up chest x-ray will be obtained. The patient will have a neurosurgical evaluation while in the hospital and we will try to wean the oxygen to maintain sats over 92. Thank you. Dr. Shane Machuca, for this consultation. MD FARRUKH Underwood/ /8:05 PM /9:59 PM MONIKA
[2017-06-17] VITALS (31 sets, daily range): BP systolic 114–146; BP diastolic 63–91; PULSE 60–100; RESP 18–22; TEMP 97.3–98; O2SAT 89–96
[2017-06-17] MEDS: HEPARIN SODIUM - SQ 10,000 UNITS/ML VIAL SQ SCH ×2 (04:15→15:08)
[2017-06-17] MEDS: methylPREDNISolone SOD SUCC 40 MG/1 ML VIAL IV SCH ×4 (04:15→21:35)
[2017-06-17 05:45] LABS: AUTOMATED NEUTROPHIL # 4.9 TH/MM3 (1.8-7.7); BASOPHIL % 0.2 % (0.0-2.0); HEMATOCRIT 39.5 % (35.0-46.0); HEMO FLAGS DIFF FINAL; LYMPH % 11.5 % (9.0-44.0); LYMPHOCYTE # 0.7 TH/MM3 (1.0-4.8); MEAN CELL VOLUME 84.3 FL (80.0-100.0); MEAN CORPUSCULAR HEMOGLOBIN 27.6 PG (27.0-34.0); MEAN CORPUSCULAR HGB CONC 32.8 % (32.0-36.0); MONO % 5.4 % (0.0-8.0); NEUT % 82.9 % (16.0-70.0); PLATELET COUNT 227 TH/MM3 (150-450); RED BLOOD COUNT 4.69 MIL/MM3 (4.00-5.30); RED CELL DISTRIBUTION WIDTH 14.9 % (11.6-17.2); WHITE BLOOD COUNT 5.9 TH/MM3 (4.0-11.0)
[2017-06-17 06:10] LABS: BICARBONATE 26.2 MEQ/L (21.0-32.0); POTASSIUM 4.2 MEQ/L (3.5-5.1)
[2017-06-17] MEDS: LEVOTHYROXINE SODIUM 112 MCG TAB PO SCH (06:25)
[2017-06-17] MEDS: METOPROLOL TARTRATE 25 MG TAB PO SCH ×2 (08:19→21:35)
[2017-06-17] MEDS: RIFAMPIN 150 MG CAP PO SCH ×2 (08:19→21:35)
[2017-06-17] MEDS: ETHAMBUTOL HCL 400 MG TAB PO SCH ×2 (08:19→21:35)
[2017-06-17] MEDS: SODIUM CHLORIDE 0.9% FLUSH 10 ML FLUSH IV FLUSH SCH ×2 (08:20→21:37)
[2017-06-17] MEDS: RESP: ALBUTEROL 2.5 MG/IPRATROPIUM 0.5 MG NEB (SCH) NEB ×4 (08:26→20:13)
[2017-06-17] MEDS: FLUTICASONE PROPIONATE 50 MCG/ACT 16 GM NASAL SPRAY NASAL SCH (09:00)
[2017-06-17] MEDS: ACETAMINOPHEN/HYDROcodone 325 MG/5 MG TAB PO PRN ×3 (09:01→21:34)
[2017-06-17] MEDS: BUDESONIDE-FORMOTEROL 160/4.5 MCG INHALER INH SCH ×2 (09:02→21:36)
--- NOTE | 2017-06-17 10:01 | HHI.PR ---
Subjective Remarks Patient seen and examined this morning. Overnight events. Denies chest pain or shortness of breath. Her weight has been stable. Currently on nonrebreather. Per nurse when patient moves O2 sats dropped to the 80s. Patient is asymptomatic. Patient reports that at home her oxygens are in the mid 80s. She states that her back pain is better. Is inquiring about physical therapy. Objective Vital Signs Date Time Temp Pulse Resp B/P (MAP) Pulse Ox O2 Delivery O2 Flow Rate FiO2 06/17/17 07:30 97.4 76 20 135/74 (94) 92 06/17/17 06:00 66 06/17/17 05:00 72 06/17/17 04:45 96 Partial Rebreather 11.00 06/17/17 04:00 70 06/17/17 03:00 98.0 77 20 141/63 (89) 96 06/17/17 03:00 96 Nasal Cannula 6.00 06/17/17 03:00 66 06/17/17 02:00 66 06/17/17 01:00 66 06/17/17 00:00 68 06/16/17 23:00 98.0 74 18 121/69 (86) 96 06/16/17 23:00 96 Nasal Cannula 6.00 06/16/17 23:00 64 06/16/17 22:13 20 06/16/17 22:00 90 06/16/17 21:00 82 06/16/17 20:29 93 Nasal Cannula 6.00 06/16/17 20:17 96 Partial Rebreather 11.00 06/16/17 20:00 98 Non-Rebreather 12.00 06/16/17 20:00 88 06/16/17 19:00 92 06/16/17 19:00 99.0 89 20 139/87 (104) 95 06/16/17 19:00 95 Partial Non-Rebreather 11.00 06/16/17 18:00 97.9 96 22 128/81 (97) 100 Non-Rebreather 12.00 100 06/16/17 15:59 97.8 94 22 132/66 (88) 98 Non-Rebreather 100 06/16/17 13:13 22 06/16/17 13:00 98.0 95 24 128/91 (103) 99 Non-Rebreather 12.00 100 06/16/17 11:30 97.8 98 24 130/96 (107) 100 Non-Rebreather 12.00 100 06/16/17 10:33 97.9 100 24 127/84 (98) 98 Non-Rebreather 100 I/O 06/16/17 06/16/17 06/16/17 06/17/17 06/17/17 06/17/17 07:00 15:00 23:00 07:00 15:00 23:00 Intake Total 700 ml 240 ml Output Total 1400 ml Balance -700 ml 240 ml Intake Oral 200 ml 240 ml IV Total 500 ml Output Urine Total 1400 ml # Voids 2 3 # Bowel Movements 0 Result Diagram: 06/17/17 0455 06/17/17 [address] Angiography 06/16/17 1119 Signed Impressions: Service Date/Time: Friday, June 16, 2017 12:19 - CONCLUSION: 1. No evidence of pulmonary embolism. 2. Severe pulmonary fibrosis and findings of pulmonary hypertension Denilson Merritt MD Chest X-Ray 06/16/17 0921 Signed Impressions: Service Date/Time: Friday, June 16, 2017 09:26 - CONCLUSION: Mild to moderate congestive failure. De Irizarry MD FACR Hip and Pelvis X-Ray 06/16/17 0000 Signed Impressions: Service Date/Time: Friday, June 16, 2017 11:25 - CONCLUSION: Degenerative changes, negative for fracture. De Irizarry MD FACR Objective Remarks GENERAL: Comfortable, laying in bed, partial nonrebreather in place SKIN: Warm and dry. HEAD: Normocephalic. EYES: No scleral icterus. No injection or drainage. NECK: Supple, trachea midline. No JVD or lymphadenopathy. CARDIOVASCULAR: Regular rate and rhythm without murmurs, gallops, or rubs. RESPIRATORY: Breath sounds equal bilaterally. No accessory muscle use. No increased work of breathing. GASTROINTESTINAL: Abdomen soft, non-tender, nondistended. MUSCULOSKELETAL: No cyanosis, or edema. A/P Problem List: (1) Compression fracture of L4 lumbar vertebra ICD Code: S32.040A - Wedge compression fracture of fourth lumbar vertebra, initial encounter for closed fracture (2) COPD (chronic obstructive pulmonary disease) ICD Code: J44.9 - Chronic obstructive pulmonary disease, unspecified Status: Acute (3) SVT (supraventricular tachycardia) ICD Code: I47.1 - Supraventricular tachycardia Status: Acute Assessment and Plan 77-year-old female with past medical history of COPD, hypothyroidism, SVT, Mycobacterium avium infection, hypertensive pneumonitis who presented for back pain and found to have SVT Intractable lower back pain secondary to compression fracture: Pain better controlled. See imaging above. Reviewed: Lumbar CT from 06/15 showed acute mild compression deformity involving L4 without retropulsion, chronic compression deformity of L3. -Pain control with [place], IV morphine for breakthrough pain. -PT eval - Pending above likely will need SNIF placement - Neurosurgery eval as an outpatient SVT: Converted to sinus tachycardia after receiving adenosine in the field. Heart rate currently in NSR on monitor. 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 Breathing comfortably, she is on 5 L of nasal cannula at home. Reviewed: Chest x-ray shows mild to moderate congestive failure. BNP 72. Pulmonary angiogram shows no PE, severe pulmonary fibrosis and findings of pulmonary hypertension. -Nebs as needed -O2 as needed -IV Solu-Medrol -Symbicort - Seen by pulmonology Dr. Vimal dinero: Solu-Medrol 40 mg IV every 6 added to her regimen. History of mycobacterial avium infection: Follows with ID, Dr. Shah -Continue Bactrim, ethambutol, rifabutin Hypothyroidism: Chronic, stable. -Continue home levothyroxine dose DVT prophylaxis: Heparin Discharge Planning DC pending stabilization of clinical status. Cardiology consultation is pending. Likely will go to SNIF. Stacy Adair MD Jun 17, 2017 10:01
[2017-06-17] MEDS: TIOTROPIUM BROMIDE 18 MCG INH INH SCH (11:16)
[2017-06-17] MEDS: LATANOPROST 0.005% OPHT SOLN 2.5 ML BTL EACH EYE SCH (21:33)
[2017-06-18] VITALS (23 sets, daily range): BP systolic 111–138; BP diastolic 72–81; PULSE 62–92; RESP 17–22; TEMP 97.7–98.9; O2SAT 90–97
[2017-06-18] MEDS: LEVOTHYROXINE SODIUM 112 MCG TAB PO SCH (05:04)
[2017-06-18] MEDS: HEPARIN SODIUM - SQ 10,000 UNITS/ML VIAL SQ SCH ×2 (05:04→14:54)
[2017-06-18] MEDS: ACETAMINOPHEN/HYDROcodone 325 MG/5 MG TAB PO PRN ×4 (06:22→22:09)
--- NOTE | 2017-06-18 07:17 | HHI.PR ---
Subjective Remarks Patient seen and examined this morning. Overnight events. Denies chest pain or shortness of breath. Currently on 5 L nasal cannula saturating at 96%. Reports 4/10 back pain. Wants to speak to a neurosurgeon. Patient unable to ambulate independently. Worried about going home due to her being sick and unable to help her get around. Reports low back pain that shoots down her right leg. Reports her breathing is at her baseline. Objective Vital Signs Date Time Temp Pulse Resp B/P (MAP) Pulse Ox O2 Delivery O2 Flow Rate FiO2 06/18/17 06:00 71 06/18/17 05:00 74 06/18/17 04:00 98.0 67 20 130/73 (92) 96 06/18/17 04:00 62 06/18/17 03:06 68 06/18/17 03:00 96 Nasal Cannula 5.00 06/18/17 02:00 68 06/18/17 01:00 78 06/18/17 00:00 67 06/18/17 00:00 98.1 76 20 125/74 (91) 97 06/17/17 23:13 97 Nasal Cannula 5.00 06/17/17 23:02 100 06/17/17 22:00 76 06/17/17 21:00 93 06/17/17 20:13 96 Nasal Cannula 5.00 06/17/17 20:00 94 06/17/17 20:00 89 Nasal Cannula 5.00 06/17/17 20:00 97.3 88 22 146/91 (109) 89 06/17/17 19:00 88 06/17/17 18:00 87 06/17/17 17:00 88 06/17/17 16:00 89 Nasal Cannula 6.00 06/17/17 16:00 84 06/17/17 15:00 86 06/17/17 15:00 97.5 88 18 120/68 (85) 90 06/17/17 14:00 80 06/17/17 13:00 76 06/17/17 12:00 78 06/17/17 11:30 97.6 96 18 114/76 (89) 91 06/17/17 11:00 88 Nasal Cannula 6.00 06/17/17 11:00 76 06/17/17 10:00 78 Nasal Cannula 6.00 06/17/17 10:00 70 06/17/17 09:00 68 06/17/17 08:40 92 Nasal Cannula 6.00 06/17/17 08:26 94 Partial Rebreather 10.00 06/17/17 08:00 62 06/17/17 08:00 92 Nasal Cannula 6.00 06/17/17 07:30 97.4 76 20 135/74 (94) 92 I/O 06/17/17 06/17/17 06/17/17 06/18/17 06/18/17 06/18/17 07:00 15:00 23:00 07:00 15:00 23:00 Intake Total 240 ml Balance 240 ml Intake Oral 240 ml # Voids 3 Result Diagram: 06/17/17 0455 06/17/17 [address] Angiography 06/16/17 1119 Signed Impressions: Service Date/Time: Friday, June 16, 2017 12:19 - CONCLUSION: 1. No evidence of pulmonary embolism. 2. Severe pulmonary fibrosis and findings of pulmonary hypertension Denilson Merritt MD Chest X-Ray 06/16/17 0921 Signed Impressions: Service Date/Time: Friday, June 16, 2017 09:26 - CONCLUSION: Mild to moderate congestive failure. De Irizarry MD FACR Hip and Pelvis X-Ray 06/16/17 0000 Signed Impressions: Service Date/Time: Friday, June 16, 2017 11:25 - CONCLUSION: Degenerative changes, negative for fracture. De Irizarry MD FACR Objective Remarks GENERAL: Comfortable, laying in bed, nasal canula SKIN: Warm and dry. HEAD: Normocephalic. EYES: No scleral icterus. No injection or drainage. NECK: Supple, trachea midline. No JVD or lymphadenopathy. CARDIOVASCULAR: Regular rate and rhythm without murmurs, gallops, or rubs. RESPIRATORY: Breath sounds equal bilaterally. No accessory muscle use. No increased work of breathing. GASTROINTESTINAL: Abdomen soft, non-tender, nondistended. MUSCULOSKELETAL: No cyanosis, or edema. +LBP A/P Problem List: (1) Compression fracture of L4 lumbar vertebra ICD Code: S32.040A - Wedge compression fracture of fourth lumbar vertebra, initial encounter for closed fracture (2) COPD (chronic obstructive pulmonary disease) ICD Code: J44.9 - Chronic obstructive pulmonary disease, unspecified Status: Acute (3) SVT (supraventricular tachycardia) ICD Code: I47.1 - Supraventricular tachycardia Status: Acute Assessment and Plan 77-year-old female with past medical history of COPD, hypothyroidism, SVT, Mycobacterium avium infection, hypertensive pneumonitis who presented for back pain and found to have SVT Intractable lower back pain secondary to compression fracture: Pain better controlled. See imaging above. Reviewed: Lumbar CT from 06/15 showed acute mild compression deformity involving L4 without retropulsion, chronic compression deformity of L3. -Pain control with [place], IV morphine for breakthrough pain. -PT eval - Pending above likely will need SNIF placement - Neurosurgery eval as an outpatient SVT: Converted to sinus tachycardia after receiving adenosine in the field. Heart rate currently in NSR on monitor. 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 Breathing comfortably, she is on 5 L of nasal cannula at home. Reviewed: Chest x-ray shows mild to moderate congestive failure. BNP 72. Pulmonary angiogram shows no PE, severe pulmonary fibrosis and findings of pulmonary hypertension. -Nebs as needed -O2 as needed -IV Solu-Medrol -Symbicort - Seen by pulmonology Dr. Vimal dinero: Solu-Medrol 40 mg IV BID History of mycobacterial avium infection: Follows with ID, Dr. Shah -Continue Bactrim, ethambutol, rifabutin Hypothyroidism: Chronic, stable. -Continue home levothyroxine dose DVT prophylaxis: Heparin Discharge Planning DC pending stabilization of clinical status. Cardiology consultation is pending. Neurosurgery consult pending. Patient desires SNF placement, to assist. Stacy Adair MD Jun 18, 2017 07:17
[2017-06-18] MEDS: RESP: ALBUTEROL 2.5 MG/IPRATROPIUM 0.5 MG NEB (SCH) NEB ×4 (07:34→21:23)
[2017-06-18] MEDS: BUDESONIDE-FORMOTEROL 160/4.5 MCG INHALER INH SCH ×2 (08:27→21:00)
[2017-06-18] MEDS: TIOTROPIUM BROMIDE 18 MCG INH INH SCH (08:28)
[2017-06-18] MEDS: METOPROLOL TARTRATE 25 MG TAB PO SCH ×2 (08:33→22:08)
[2017-06-18] MEDS: RIFAMPIN 150 MG CAP PO SCH ×2 (08:33→22:08)
[2017-06-18] MEDS: FLUTICASONE PROPIONATE 50 MCG/ACT 16 GM NASAL SPRAY NASAL SCH (08:33)
[2017-06-18] MEDS: ETHAMBUTOL HCL 400 MG TAB PO SCH ×2 (08:33→22:08)
[2017-06-18] MEDS: SODIUM CHLORIDE 0.9% FLUSH 10 ML FLUSH IV FLUSH SCH ×2 (08:35→21:00)
[2017-06-18] MEDS: methylPREDNISolone SOD SUCC 40 MG/1 ML VIAL IV SCH (08:35)
[2017-06-18] MEDS: SULFAMETHOXAZOLE-TRIMETHOPRIM DS 800-160 MG TAB PO SCH (08:38)
--- NOTE | 2017-06-18 14:49 | PD.CONS ---
HPI Service Cardiology Physicians Consult Requested By Dr Machuca Reason for Consult SVT Primary Care Physician Shantel Madden MD History of Present Illness The patient is a patient of Dr Fair with a history of tachycardia. She has a history of pulmonary fibrosis and CYNTHIA infection. The patient had a traumatic, mechanical fall in a local restaurant that resulted in a fractured lumbar vertebrae. She was noted to have SVT/atrial tachycardia that improved with adenosine. Currently, she is in NSR since midnight. She is on metoprolol. She denies CP, pleuritic pain, increased SOB, diaphoresis or lightheadedness. She is pending a consult with Dr Castellanos. Review of Systems Consitutional: DENIES: Fatigue, Fever, Chills, Weight gain, Weight loss Eyes: DENIES: Amaurosis [place], Change in vision HEENT: DENIES: Lightheadedness, Change in hearing Respiratory: DENIES: See HPI, Cough, Snoring, Shortness of breath, Wheezing, Sputum production Cardiovascular: COMPLAINS OF: Tachycardia, DENIES: See HPI, Chest pain, Palpitations, Syncope Gastrointestinal: DENIES: Nausea, Vomiting, Change in bowel habits, Reflux, Bloody stools, Melena Genitourinary: DENIES: Urinary incontinence, Difficulty voiding Integumentary: DENIES: Rash Neurologic: DENIES: Tingling or numbness, Memory problems, Poor Balance, Stroke symptoms Musculoskeletal: COMPLAINS OF: Back pain, DENIES: Joint pain, Muscle pain, Limited range of motion Psychiatric: DENIES: Anxiety, Depression, Sleep disturbances Hematologic: DENIES: Bruising tendencies, Bleeding tendencies Endocrine: DENIES: Weight gain, Weight loss, Thyroid disease Past Family Social History Allergies: Coded Allergies: azithromycin (Verified Allergy, Severe, RASH, 06/16/17) Past Medical History COPD on home oxygen Hypothyroidism SVT Mycobacterium avium infection Hypertensive pneumonitis Osteoporosis Past Surgical History lung biopsy Reported Medications Reported Meds & Active Scripts Active Lortab (Hydrocodone-Acetaminophen) 5-325 Mg Tab 1 Tab PO Q6H PRN Reported Flonase Nasal [place] (Fluticasone Nasal [place]) 50 Mcg/Act [place] 50 Mcg EACH NARE DAILY Latanoprost Opth Drops (Latanoprost) 0.005% Drops 1 Drop EACH EYE HS Refrigerate until opened. Ibandronate (Ibandronate Sodium) 150 Mg Tab 150 Mg PO Q28D Ethambutol (Ethambutol HCl) 400 Mg Tab 1 Tab PO BID Rifabutin 150 Mg Cap 1 Cap PO BID Spiriva Respimat Inh (Tiotropium Inh) 2.5 Mcg/Act Aero 2 Puff INH DAILY 2.5 mcg = 1 inhalation Metoprolol Tartrate 25 Mg Tab 25 Mg PO BID Advair Diskus Inh (Fluticasone-Salmeterol Inh) 250-50 Mcg/Blist Aer 1 Puff INH BID Rinse mouth after use. Prednisone 10 Mg Tab 15 Mg PO DAILY Synthroid (Levothyroxine Sodium) 112 Mcg Tab 112 Mcg PO DAILY Sulfamethoxazole-Trimethoprim 800-160 Mg Tab 1 Tab PO [id number] Active Ordered Medications Current Medications Medications (Trade) Dose Ordered Sig/Brendon Route Start Time Stop Time Status Last Admin (Myambutol) 400 mg BID PO 06/16/17 21:00 06/18/17 08:33 (Xalatan 0.005% Opth Soln) 1 drop HS EACH EYE 06/16/17 21:00 06/17/17 21:33 (Synthroid) 112 mcg DAILY@0600 PO 06/17/17 06:00 06/18/17 05:04 (Lopressor) 25 mg BID PO 06/16/17 21:00 06/18/17 08:33 (Bactrim Ds 800-160 Mg) 1 tab EVERY OTHER DAY PO 06/18/17 09:00 06/18/17 08:38 (Flonase Alexandru Spr) 1 spray DAILY NASAL 06/17/17 09:00 06/18/17 08:33 (Symbicort 160-4.5 Inh) 1 puff BID INH 06/16/17 21:00 06/18/17 08:27 Patient Own Medication PT OWN MED: ibandron... Q28D PO 07/13/17 09:00 (Spiriva Inh) 18 mcg DAILY INH 06/17/17 09:00 06/18/17 08:28 (NS Flush) 2 ml BID IV FLUSH 06/16/17 21:00 06/18/17 08:35 (NS Flush) 2 ml UNSCH PRN IV FLUSH 06/16/17 13:30 (Albuterol Neb) 2.5 mg Q2HR NEB PRN INH 06/16/17 13:30 (Heparin Inj) 5,000 units Q12H SQ 06/16/17 15:00 06/18/17 05:04 ([place] 5-325 Mg) 1 tab Q4H PRN PO 06/16/17 13:30 06/18/17 11:21 (Morphine Inj) 2 mg Q3H PRN IV PUSH 06/16/17 13:30 (Rifampin) 300 mg Q12HR PO 06/16/17 21:00 06/18/17 08:33 (Duoneb Neb) 1 ampule QID NEB NEB 06/16/17 20:00 06/18/17 07:34 (SoluMEDROL INJ) 40 mg BID IV 06/17/17 21:00 06/18/17 08:35 Family History non contributory Social History No smoking Physical Exam Vital Signs Vital Signs Date Time Temp Pulse Resp B/P (MAP) Pulse Ox O2 Delivery O2 Flow Rate FiO2 06/18/17 13:03 84 06/18/17 13:03 18 06/18/17 11:22 98.4 74 17 135/78 (97) 90 06/18/17 11:13 96 Nasal Cannula 5.00 06/18/17 11:00 80 06/18/17 10:00 68 06/18/17 09:00 74 06/18/17 08:09 96 Nasal Cannula 5.00 06/18/17 08:00 74 06/18/17 07:15 95 Nasal Cannula 5.00 06/18/17 07:00 80 06/18/17 07:00 98.9 83 18 138/79 (98) 93 06/18/17 06:00 71 06/18/17 05:00 74 06/18/17 04:00 98.0 67 20 130/73 (92) 96 06/18/17 04:00 62 06/18/17 03:06 68 06/18/17 03:00 96 Nasal Cannula 5.00 06/18/17 02:00 68 06/18/17 01:00 78 06/18/17 00:00 67 06/18/17 00:00 98.1 76 20 125/74 (91) 97 06/17/17 23:13 97 Nasal Cannula 5.00 06/17/17 23:02 100 06/17/17 22:00 76 06/17/17 21:00 93 06/17/17 20:13 96 Nasal Cannula 5.00 06/17/17 20:00 94 06/17/17 20:00 89 Nasal Cannula 5.00 06/17/17 20:00 97.3 88 22 146/91 (109) 89 06/17/17 19:00 88 06/17/17 18:00 87 06/17/17 17:00 88 06/17/17 16:00 89 Nasal Cannula 6.00 06/17/17 16:00 84 06/17/17 15:00 86 06/17/17 15:00 97.5 88 18 120/68 (85) 90 Physical Exam GENERAL: obese female SKIN: Warm and dry. HEAD: Atraumatic. Normocephalic. EYES: Pupils equal and round. No scleral icterus. No injection or drainage. ENT: No nasal bleeding or discharge. NECK: Trachea midline. No JVD. CARDIOVASCULAR: Regular rate and rhythm. RESPIRATORY: No accessory muscle use. Breath sounds equal bilaterally. GASTROINTESTINAL: Abdomen soft, non-tender, nondistended. MUSCULOSKELETAL: Extremities without clubbing, cyanosis, or edema. . NEUROLOGICAL: Awake and alert. No obvious cranial nerve deficits. Motor grossly within normal limits. Five out of 5 muscle strength in the arms and legs. Normal speech. PSYCHIATRIC: Appropriate mood and affect; insight and judgment normal. Result Diagram: 06/17/17 0455 06/17/17 0455 Imaging Last [address] Angiography 06/16/17 1119 Signed Impressions: Service Date/Time: Friday, June 16, 2017 12:19 - CONCLUSION: 1. No evidence of pulmonary embolism. 2. Severe pulmonary fibrosis and findings of pulmonary hypertension Denilson Merritt MD Chest X-Ray 06/16/17 0921 Signed Impressions: Service Date/Time: Friday, June 16, 2017 09:26 - CONCLUSION: Mild to moderate congestive failure. De Irizarry MD FACR Hip and Pelvis X-Ray 06/16/17 0000 Signed Impressions: Service Date/Time: Friday, June 16, 2017 11:25 - CONCLUSION: Degenerative changes, negative for fracture. De Irizarry MD FACR Assessment and Plan Assessment and Plan SVT likely exacerbated by pain Traumatic, mechanical fall resulted in fractured L4 vertebrae Pulmonary fibrosis CYNTHIA PLAN: Continue metoprolol Okay to change to regular diet Check TSH The patient is stable from a cardiac standpoint. The patient was seen and evaluated by Dr Tovar who complete a face to face encounter, did a physial exam and participated in evaluation and management. Leesa Guaman Jun 18, 2017 14:49
[2017-06-18] MEDS: LATANOPROST 0.005% OPHT SOLN 2.5 ML BTL EACH EYE SCH (21:00)
[2017-06-18] MEDS: predniSONE 10 MG TAB PO SCH (22:08)
--- NOTE | 2017-06-18 23:55 | PD.CONS ---
History of Present Illness Service Neurosurgery Consult Requested By Medicine service Reason for Consult L4 fracture Primary Care Physician Shantel Madden MD Diagnoses: History of Present Illness 77-year-old female previously reported to [facility] emergency room on 06/15/17 after she sat down and missed the chair, landing on her buttocks. She experienced immediate low back pain. She underwent a CT scan in the emergency room and was noted to have a mild L4 compression deformity. Her examination was within normal limits. She declined a brace and was given a referral for outpatient neurosurgery evaluation. He continued to have significant pain at home, and returned back to the emergency room on 06/16/17 due to persistent severe back pain with new radiation of pain to the right buttock and primarily lateral right lower extremity. She has not noticed any bowel or bladder dysfunction. Review of Systems Constitutional: DENIES: Fever, Weight loss Eyes: DENIES: Blurred vision, Diplopia Ears, nose, mouth, throat: DENIES: Tinnitus, Hearing loss, Vertigo Cardiovascular: DENIES: Chest pain, Palpitations Gastrointestinal: DENIES: Abdominal pain, Nausea, Vomiting Musculoskeletal: COMPLAINS OF: Back pain, DENIES: Joint pain, Neck pain Hematologic/lymphatic: DENIES: Bruising Neurologic: COMPLAINS OF: Abnormal gait Psychiatric: DENIES: Anxiety, Confusion Past Family Social History Allergies: Coded Allergies: azithromycin (Verified Allergy, Severe, RASH, 06/16/17) Past Medical History Paroxysmal SVT COPD. Uses home oxygen Hypothyroidism Hypertension History of ovarian cancer Past Surgical History Lung biopsy Surgery for ovarian cancer Reported Medications Current Medications Medications (Trade) Dose Ordered Sig/Brendon Route Start Time Stop Time Status Last Admin (Myambutol) 400 mg BID PO 06/16/17 21:00 06/18/17 22:08 (Xalatan 0.005% Opth Soln) 1 drop HS EACH EYE 06/16/17 21:00 06/18/17 21:00 (Synthroid) 112 mcg DAILY@0600 PO 06/17/17 06:00 06/18/17 05:04 (Lopressor) 25 mg BID PO 06/16/17 21:00 06/18/17 22:08 (Bactrim Ds 800-160 Mg) 1 tab EVERY OTHER DAY PO 06/18/17 09:00 06/18/17 08:38 (Flonase Alexandru Spr) 1 spray DAILY NASAL 06/17/17 09:00 06/18/17 08:33 (Symbicort 160-4.5 Inh) 1 puff BID INH 06/16/17 21:00 06/18/17 21:00 Patient Own Medication PT OWN MED: ibandron... Q28D PO 07/13/17 09:00 (Spiriva Inh) 18 mcg DAILY INH 06/17/17 09:00 06/18/17 08:28 (NS Flush) 2 ml BID IV FLUSH 06/16/17 21:00 06/18/17 21:00 (NS Flush) 2 ml UNSCH PRN IV FLUSH 06/16/17 13:30 (Albuterol Neb) 2.5 mg Q2HR NEB PRN INH 06/16/17 13:30 (Heparin Inj) 5,000 units Q12H SQ 06/16/17 15:00 06/19/17 01:35 ([place] 5-325 Mg) 1 tab Q4H PRN PO 06/16/17 13:30 06/18/17 22:09 (Morphine Inj) 2 mg Q3H PRN IV PUSH 06/16/17 13:30 (Rifampin) 300 mg Q12HR PO 06/16/17 21:00 06/18/17 22:08 (Duoneb Neb) 1 ampule QID NEB NEB 06/16/17 20:00 06/18/17 21:23 (Deltasone) 10 mg BID PO 06/18/17 21:00 06/18/17 22:08 Family History Lung cancer in her father Social History No alcohol use Quit smoking approximately 10 years ago Physical Exam Vital Signs Vital Signs Date Time Temp Pulse Resp B/P (MAP) Pulse Ox O2 Delivery O2 Flow Rate FiO2 06/18/17 21:26 92 Nasal Cannula 5.00 06/18/17 18:07 87 06/18/17 17:13 67 06/18/17 16:11 92 06/18/17 15:00 95 Nasal Cannula 5.00 06/18/17 15:00 98.7 73 18 111/72 (85) 92 06/18/17 15:00 79 06/18/17 14:00 76 06/18/17 13:03 84 06/18/17 13:03 18 06/18/17 11:22 98.4 74 17 135/78 (97) 90 06/18/17 11:13 96 Nasal Cannula 5.00 06/18/17 11:00 80 06/18/17 10:00 68 06/18/17 09:00 74 06/18/17 08:09 96 Nasal Cannula 5.00 06/18/17 08:00 74 06/18/17 07:15 95 Nasal Cannula 5.00 06/18/17 07:00 80 06/18/17 07:00 98.9 83 18 138/79 (98) 93 06/18/17 06:00 71 06/18/17 05:00 74 06/18/17 04:00 98.0 67 20 130/73 (92) 96 06/18/17 04:00 62 06/18/17 03:06 68 06/18/17 03:00 96 Nasal Cannula 5.00 06/18/17 02:00 68 06/18/17 01:00 78 06/18/17 00:00 67 06/18/17 00:00 98.1 76 20 125/74 (91) 97 Physical Exam GENERAL: This is a well-nourished, well-developed patient, no apparent distress. SKIN: No abrasions, contusion, rash noted. Skin warm and dry. HEAD: Atraumatic. Normocephalic. No temporal or scalp tenderness. EYES: Sclerae are clear and nonicteric ENT: No facial edema or ecchymosis. No periorbital edema. No CSF otorrhea or rhinorrhea. No palpable facial fracture or deformity. NECK: Trachea midline. No cervical spine tenderness. CARDIOVASCULAR: Regular rate and rhythm without murmurs, gallops, or rubs. RESPIRATORY: Clear to auscultation. Breath sounds equal bilaterally. No wheezes , rales, or rhonchi. GASTROINTESTINAL: Abdomen soft, non-tender, nondistended. No hepato-splenomegaly , or palpable masses. No guarding. MUSCULOSKELETAL: Extremities without cyanosis, or edema. No joint tenderness, or edema noted. No calf tenderness. Dorsalis pedis pulses 2+ bilateral There is mild tenderness to palpation over the right lower lumbosacral region and right gluteal musculature. NEUROLOGICAL: Awake and alert Oriented X 3 Speech is clear Conversant and appropriate Follow simple commands well Answers questions appropriately Reasonable judgment and insight Recent and remote memory are intact No evidence of anxiety or depression Pupils are equal and reactive to accommodation. Extra-ocular movements, visual gaona to confrontation, facial sensorimotor, tongue, palate, sternocleidomastoid testing, hearing to finger rub testing, and bilateral shoulder shrug are all intact. Sensation is intact to light touch in all extremities Strength normal major flexion and extension groups all extremities Lakia's absent bilaterally No ankle clonus Plantar responses absent bilateral Fine motor movements intact upper extremities Result Diagram: 06/17/17 0455 06/17/17 0455 Imaging 06/15/17 CT scan lumbar spine images are reviewed by the undersigned. This study reveals a relatively mild inferior L4 compression fracture without retropulsion. There is a more chronic and milder inferior L3 compression deformity. There appears to be at least moderate bilateral L4-[address] Angiography 06/16/17 1119 Signed Impressions: Service Date/Time: Friday, June 16, 2017 12:19 - CONCLUSION: 1. No evidence of pulmonary embolism. 2. Severe pulmonary fibrosis and findings of pulmonary hypertension Denilson Merritt MD Chest X-Ray 06/16/17 0921 Signed Impressions: Service Date/Time: Friday, June 16, 2017 09:26 - CONCLUSION: Mild to moderate congestive failure. De Irizarry MD FACR Hip and Pelvis X-Ray 06/16/17 0000 Signed Impressions: Service Date/Time: Friday, June 16, 2017 11:25 - CONCLUSION: Degenerative changes, negative for fracture. De Irizarry MD FACR Assessment and Plan Assessment and Plan Impression: 1. Inferior L4 compression fracture 2. L4 5 lateral recess stenosis 3. Right L5 radiculopathy based on symptoms and imaging study without focal deficit on examination 4. Mild grade 1 L4-L5 spondylolisthesis Recommendations: Findings were discussed with the patient and her . Options of conservative treatment, interventional pain management, and surgical intervention were all fully discussed along with pros and cons and prognosis of each. Due to the lack of significant instability or overall canal compromise noted on initial imaging study, the lack of focal deficit on examination, and the patient 's underlying medical problems, conservative treatment is initially recommended. She previously refused a lumbar brace according to the emergency room records on 06/15/17. She now agrees to a LSO brace. She may be mobilized out of bed as tolerated with the brace. Activity precautions and signs and symptoms to watch for have been fully discussed. The patient and her understand the risk of progressive compression fracture and retropulsion including possible neurologic deficit. She will begin a trial of gabapentin for the right L5 radicular symptoms. I would also like to see with an MRI of the lumbar spine to better determine the degree of L5 nerve compression. I have answered all of their questions she appears to understand all of the above and indicates her desire to continue conservative treatment at this point. Brock Castellanos MD Jun 18, 2017 23:55
[2017-06-19] VITALS (30 sets, daily range): BP systolic 104–148; BP diastolic 66–89; PULSE 58–144; RESP 20–24; TEMP 97.5–98.7; O2SAT 90–98
[2017-06-19] MEDS: HEPARIN SODIUM - SQ 10,000 UNITS/ML VIAL SQ SCH ×2 (01:35→14:04)
[2017-06-19] MEDS ORDERED: METOPROLOL TARTRATE 5 MG/5 ML VIAL IV PUSH ONE (03:15)
[2017-06-19] MEDS: ACETAMINOPHEN/HYDROcodone 325 MG/5 MG TAB PO PRN ×3 (04:08→22:14)
[2017-06-19] MEDS: MORPHINE SULFATE 4 MG/ML INJ IV PUSH PRN ×4 (04:12→21:12)
[2017-06-19] MEDS: LEVOTHYROXINE SODIUM 112 MCG TAB PO SCH (05:41)
[2017-06-19] MEDS ORDERED: METOPROLOL TARTRATE 25 MG TAB PO ONE (05:45)
--- NOTE | 2017-06-19 06:55 | HHI.PR ---
Subjective Remarks Patient seen and examined this morning. Tachycardic this am. She reports she was in pain, but just got some medicine is now at 3/10. She denies CP or feeling like her heart is racing. Getting her home does of BP medications now. Reports her breathing is unchnaged. Objective Vital Signs Date Time Temp Pulse Resp B/P (MAP) Pulse Ox O2 Delivery O2 Flow Rate FiO2 06/19/17 04:00 96 Nasal Cannula 5.00 06/19/17 04:00 127 06/19/17 03:00 132 06/19/17 03:00 98.0 140 24 131/89 (103) 92 06/19/17 02:00 72 06/19/17 01:00 58 06/19/17 00:07 72 06/19/17 00:00 97.9 72 22 127/76 (93) 98 06/19/17 00:00 98 Nasal Cannula 5.00 06/18/17 21:26 92 Nasal Cannula 5.00 06/18/17 20:00 97.7 83 22 127/81 (96) 93 06/18/17 20:00 93 Nasal Cannula 5.00 06/18/17 19:00 83 06/18/17 18:07 87 06/18/17 17:13 67 06/18/17 16:11 92 06/18/17 15:00 95 Nasal Cannula 5.00 06/18/17 15:00 98.7 73 18 111/72 (85) 92 06/18/17 15:00 79 06/18/17 14:00 76 06/18/17 13:03 84 06/18/17 13:03 18 06/18/17 11:22 98.4 74 17 135/78 (97) 90 06/18/17 11:13 96 Nasal Cannula 5.00 06/18/17 11:00 80 06/18/17 10:00 68 06/18/17 09:00 74 06/18/17 08:09 96 Nasal Cannula 5.00 06/18/17 08:00 74 06/18/17 07:15 95 Nasal Cannula 5.00 06/18/17 07:00 80 06/18/17 07:00 98.9 83 18 138/79 (98) 93 I/O 06/18/17 06/18/17 06/18/17 06/19/1717 9/4/17 07:00 15:00 23:00 07:00 15:00 23:00 Intake Total 600 ml Output Total 600 ml Balance 0 ml Intake Oral 600 ml Output Urine Total 600 ml Result Diagram: 06/17/17 0455 06/17/17 [address] Angiography 06/16/17 1119 Signed Impressions: Service Date/Time: Friday, June 16, 2017 12:19 - CONCLUSION: 1. No evidence of pulmonary embolism. 2. Severe pulmonary fibrosis and findings of pulmonary hypertension Denilson Merritt MD Chest X-Ray 06/16/17 0921 Signed Impressions: Service Date/Time: Friday, June 16, 2017 09:26 - CONCLUSION: Mild to moderate congestive failure. De Irizarry MD FACR Hip and Pelvis X-Ray 06/16/17 0000 Signed Impressions: Service Date/Time: Friday, June 16, 2017 11:25 - CONCLUSION: Degenerative changes, negative for fracture. De Irizarry MD FACR Objective Remarks GENERAL: Comfortable, laying in bed, nasal canula SKIN: Warm and dry. HEAD: Normocephalic. EYES: No scleral icterus. No injection or drainage. NECK: Supple, trachea midline. No JVD or lymphadenopathy. CARDIOVASCULAR: Regular rate and rhythm without murmurs, gallops, or rubs. RESPIRATORY: Breath sounds equal bilaterally. No accessory muscle use. No increased work of breathing. GASTROINTESTINAL: Abdomen soft, non-tender, nondistended. MUSCULOSKELETAL: No cyanosis, or edema. +LBP A/P Problem List: (1) Compression fracture of L4 lumbar vertebra ICD Code: S32.040A - Wedge compression fracture of fourth lumbar vertebra, initial encounter for closed fracture (2) COPD (chronic obstructive pulmonary disease) ICD Code: J44.9 - Chronic obstructive pulmonary disease, unspecified Status: Acute (3) SVT (supraventricular tachycardia) ICD Code: I47.1 - Supraventricular tachycardia Status: Acute Assessment and Plan 77-year-old female presented for back pain and found to have SVT Intractable lower back pain secondary to compression fracture: Pain better controlled. See imaging above. Lumbar CT from 06/15 showed acute mild compression deformity involving L4 without retropulsion, chronic compression deformity of L3. -Pain control with [place], IV morphine for breakthrough pain. -PT eval & Treat - Neurosurgery has evaluated patient: options of surgical vs. nonsurgical mgmgt. LSO brace. MRI lumbar spine ordered. - Helms placement pending SVT: Converted to sinus tachycardia after receiving adenosine in the field. Heart rate currently in NSR on monitor. -Continue home metoprolol -Monitor on telemetry -Eval by cardiology, stable from cardiac standpoint per their note Hypoxia on admission: Possibly secondary to SVT or severe chronic lung disease. Breathing comfortably, she is on 5 L of nasal cannula at home. Reviewed: Chest x-ray shows mild to moderate congestive failure. BNP 72. Pulmonary angiogram shows no PE, severe pulmonary fibrosis and findings of pulmonary hypertension. -Nebs as needed -O2 as needed -IV Solu-Medrol -Symbicort - Seen by pulmonology Dr. Vimal dinero: Solu-Medrol 10 mg PO BID History of mycobacterial avium infection: Follows with ID, Dr. Shah -Continue Bactrim, ethambutol, rifabutin Hypothyroidism: Chronic, stable. -Continue home levothyroxine dose DVT prophylaxis: Heparin Discharge Planning In summary: this is a 77 yo female who re-presented to [place] with intractable back pain after a fall. Seen initially in ER, d/c home with outpatient follow up. She was having significant pain so represented to the ER. At that time she was found to be in SVT. The patient has been seen and evaluated by cardiology and cleared from their standpoint. The patient has been seen and evaluated by neurosurgery. An MRI is ordered and pending. The patient has significant lung disease is not and is on 5 L of oxygen at home. She has been stable from a pulmonary standpoint. Placement to SNF is pending. DC pending stabilization of clinical status. Likely 1-2 days. Patient desires SNF placement, CM to assist. Stacy Adair MD Jun 19, 2017 06:55
[2017-06-19 07:43] LABS: BICARBONATE 26.7 MEQ/L (21.0-32.0); POTASSIUM 4.6 MEQ/L (3.5-5.1)
[2017-06-19] MEDS: RESP: ALBUTEROL 2.5 MG/IPRATROPIUM 0.5 MG NEB (SCH) NEB ×4 (08:00→20:29)
[2017-06-19] MEDS: predniSONE 10 MG TAB PO SCH ×2 (08:20→22:15)
[2017-06-19] MEDS: GABAPENTIN 300 MG CAP PO SCH ×2 (08:21→22:15)
[2017-06-19] MEDS: ETHAMBUTOL HCL 400 MG TAB PO SCH ×2 (08:21→22:14)
[2017-06-19] MEDS: METOPROLOL TARTRATE 25 MG TAB PO SCH ×3 (08:21→17:42)
[2017-06-19] MEDS: BUDESONIDE-FORMOTEROL 160/4.5 MCG INHALER INH SCH ×2 (08:33→22:14)
[2017-06-19] MEDS: FLUTICASONE PROPIONATE 50 MCG/ACT 16 GM NASAL SPRAY NASAL SCH (08:33)
[2017-06-19] MEDS: SODIUM CHLORIDE 0.9% FLUSH 10 ML FLUSH IV FLUSH SCH ×2 (08:33→22:15)
[2017-06-19] MEDS: TIOTROPIUM BROMIDE 18 MCG INH INH SCH (08:33)
--- NOTE | 2017-06-19 08:34 | HHI.FPPN ---
Addendum to progress note ADDENDUM Reason for addendum: Additonal documentation Additional information In regards to tachy - EKG to ensure its sinus tach and not SVT - Just received lopressor - If tacycardia persists &/or if SVT will notify cardiology Case discussed with nurse. Stacy Adair MD Jun 19, 2017 08:34
[2017-06-19] MEDS ORDERED: RIFAMPIN 150 MG CAP PO SCH (09:00)
[2017-06-19] MEDS: RIFABUTIN 150 MG PO SCH (09:57)
--- NOTE | 2017-06-19 12:59 | PD.CARD.PN ---
Subjective Subjective Remarks Recurrent episodes of SVT. Most recent episode this morning revealed rate responsive LBBB. She denies chest pain, increased SOB, palpitations or lightheadedness. One episode occurred overnight while she was sleeping. She is noted to have hypoxia while sleeping per the RN. (Leesa Guaman) Objective Medications Current Medications Medications (Trade) Dose Ordered Sig/Brendon Route Start Time Stop Time Status Last Admin (Myambutol) 400 mg BID PO 06/16/17 21:00 06/19/17 08:21 (Xalatan 0.005% Opth Soln) 1 drop HS EACH EYE 06/16/17 21:00 06/18/17 21:00 (Synthroid) 112 mcg DAILY@0600 PO 06/17/17 06:00 06/19/17 05:41 (Lopressor) 25 mg BID PO 06/16/17 21:00 06/19/17 08:21 (Bactrim Ds 800-160 Mg) 1 tab EVERY OTHER DAY PO 06/18/17 09:00 06/18/17 08:38 (Flonase Alexandru Spr) 1 spray DAILY NASAL 06/17/17 09:00 06/19/17 08:33 (Symbicort 160-4.5 Inh) 1 puff BID INH 06/16/17 21:00 06/19/17 08:33 Patient Own Medication PT OWN MED: ibandron... Q28D PO 07/13/17 09:00 (Spiriva Inh) 18 mcg DAILY INH 06/17/17 09:00 06/19/17 08:33 (NS Flush) 2 ml BID IV FLUSH 06/16/17 21:00 06/19/17 08:33 (NS Flush) 2 ml UNSCH PRN IV FLUSH 06/16/17 13:30 (Albuterol Neb) 2.5 mg Q2HR NEB PRN INH 06/16/17 13:30 06/19/17 10:07 (Heparin Inj) 5,000 units Q12H SQ 06/16/17 15:00 06/19/17 01:35 ([place] 5-325 Mg) 1 tab Q4H PRN PO 06/16/17 13:30 06/19/17 08:20 (Morphine Inj) 2 mg Q3H PRN IV PUSH 06/16/17 13:30 06/19/17 09:59 (Duoneb Neb) 1 ampule QID NEB NEB 06/16/17 20:00 06/18/17 21:23 (Deltasone) 10 mg BID PO 06/18/17 21:00 06/19/17 08:20 (Neurontin) 300 mg BID PO 06/19/17 09:00 06/19/17 08:21 Patient Own Medication PT OWN MED: RIFABU... DAILY PO 06/19/17 09:00 06/19/17 09:57 Vital Signs / I&O Vital Signs Date Time Temp Pulse Resp B/P (MAP) Pulse Ox O2 Delivery O2 Flow Rate FiO2 06/19/17 11:21 98.7 90 20 104/66 (79) 91 06/19/17 10:09 90 Nasal Cannula 5.00 06/19/17 09:00 89 06/19/17 08:00 140 06/19/17 07:30 96 Nasal Cannula 5.00 06/19/17 07:30 97.5 144 20 117/68 (84) 96 06/19/17 07:00 140 06/19/17 04:00 96 Nasal Cannula 5.00 06/19/17 04:00 127 06/19/17 03:00 132 06/19/17 03:00 98.0 140 24 131/89 (103) 92 06/19/17 02:00 72 06/19/17 01:00 58 06/19/17 00:07 72 06/19/17 00:00 97.9 72 22 127/76 (93) 98 06/19/17 00:00 98 Nasal Cannula 5.00 06/18/17 21:26 92 Nasal Cannula 5.00 06/18/17 20:00 97.7 83 22 127/81 (96) 93 06/18/17 20:00 93 Nasal Cannula 5.00 06/18/17 19:00 83 06/18/17 18:07 87 06/18/17 17:13 67 06/18/17 16:11 92 06/18/17 15:00 95 Nasal Cannula 5.00 06/18/17 15:00 98.7 73 18 111/72 (85) 92 06/18/17 15:00 79 06/18/17 14:00 76 06/18/17 13:03 84 06/18/17 13:03 18 I/O 06/18/17 06/18/17 06/18/17 06/19/17 06/19/17 06/19/17 07:00 15:00 23:00 07:00 15:00 23:00 Intake Total 600 ml 240 ml Output Total 600 ml 650 ml Balance 0 ml -410 ml Intake Oral 600 ml 240 ml Output Urine Total 600 ml 650 ml # Voids 2 Physical Exam GENERAL: Overweight female, NAD SKIN: Warm and dry. HEAD: Normocephalic. EYES: No scleral icterus. No injection or drainage. NECK: Supple, trachea midline. CARDIOVASCULAR: Regular rate and rhythm without murmurs, gallops, or rubs. RESPIRATORY: Nasal cannula GASTROINTESTINAL: Abdomen soft, non-tender, nondistended. MUSCULOSKELETAL: No cyanosis, or edema. Laboratory Laboratory Tests Test 06/19/17 07:08 Blood Urea Nitrogen 19 MG/DL Creatinine 0.92 MG/DL Random Glucose 111 MG/DL Calcium Level 9.3 MG/DL Sodium Level 141 MEQ/L Potassium Level 4.6 MEQ/L Chloride Level 107 MEQ/L Carbon Dioxide Level 26.7 MEQ/L Anion Gap 7 MEQ/L Estimat Glomerular Filtration Rate 59 ML/MIN Thyroid Stimulating Hormone 3rd Gen 2.860 uIU/ML (Leesa Guaman) Assessment and Plan Assessment and Plan Recurrent SVT Traumatic, mechanical fall resulted in fractured L4 vertebrae Pulmonary fibrosis CYNTHIA Oxygen dependent PLAN: Increase metoprolol to TID Dr Fair will follow up tomorrow. The patient was seen and evaluated by Dr Tovar who complete a face to face encounter, did a physial exam and participated in evaluation and management. (Leesa Guaman) Assessment and Plan Doing much better, will continue present meds, Dr Galeas or Berry will see tomorrow (Kourtney Tovar MD) Leesa Guaman Jun 19, 2017 12:59 Kourtney Tovar MD Jun 19, 2017 18:17
--- NOTE | 2017-06-19 17:40 | HHI.PR ---
Subjective Remarks She has improved . On O2 at 5 L. Going for MRI today. Objective Vital Signs Date Time Temp Pulse Resp B/P (MAP) Pulse Ox O2 Delivery O2 Flow Rate FiO2 06/19/17 17:00 86 06/19/17 16:00 88 06/19/17 15:18 93 Nasal Cannula 5.00 06/19/17 15:17 82 06/19/17 15:16 98.7 82 20 117/69 (85) 93 06/19/17 14:00 88 06/19/17 13:05 84 06/19/17 12:44 110 06/19/17 12:00 82 06/19/17 11:21 98.7 90 20 104/66 (79) 91 06/19/17 11:00 82 06/19/17 11:00 96 Nasal Cannula 5.00 06/19/17 10:09 90 Nasal Cannula 5.00 06/19/17 10:00 89 06/19/17 09:00 89 06/19/17 08:00 140 06/19/17 07:30 96 Nasal Cannula 5.00 06/19/17 07:30 97.5 144 20 117/68 (84) 96 06/19/17 07:00 140 06/19/17 04:00 96 Nasal Cannula 5.00 06/19/17 04:00 127 06/19/17 03:00 132 06/19/17 03:00 98.0 140 24 131/89 (103) 92 06/19/17 02:00 72 06/19/17 01:00 58 06/19/17 00:07 72 06/19/17 00:00 97.9 72 22 127/76 (93) 98 06/19/17 00:00 98 Nasal Cannula 5.00 06/18/17 21:26 92 Nasal Cannula 5.00 06/18/17 20:00 97.7 83 22 127/81 (96) 93 06/18/17 20:00 93 Nasal Cannula 5.00 06/18/17 19:00 83 06/18/17 18:07 87 I/O 06/18/17 06/18/17 06/18/17 06/19/17 06/19/17 06/19/17 06:59 14:59 22:59 06:59 14:59 22:59 Intake Total 600 ml 240 ml 820 ml Output Total 600 ml 650 ml Balance 0 ml -410 ml 820 ml Intake Oral 600 ml 240 ml 820 ml Output Urine Total 600 ml 650 ml # Voids 2 3 Result Diagram: 06/17/17 0455 06/19/17 0708 Objective Remarks GENERAL: This is a moderately obese elderly white female who is alert, pale and dyspneic. She has mild clubbing. No peripheral edema. HEENT: Head normocephalic. Pupils are reactive. Tongue is dry. Throat is clear. Nasal mucosa injected. NECK: Supple. No venous distension. No thyromegaly or lymphadenopathy. CHEST: Decreased breath sounds at the bases with fine basilar crackles. HEART: The heart sounds are irregular S1 and S2 with no murmur. No S3 gallop. ABDOMEN: Soft, protuberant without masses. No organomegaly or tenderness. EXTREMITIES: Varicosities and no edema. Peripheral pulses were decreased NEUROLOGIC: Reflexes are 1+ with no gross motor deficits. Cranial nerves grossly intact. SKIN: No lesions observed. Assessment and Plan Assessment and Plan IMPRESSION 1. Extensive pulmonary fibrosis with hypoxemia. 2. History of Mycobacterium Avium infection of the lungs 3. Lumbar compression fractures with radiculopathy 4. Hypothyroidism Plan : 1. Wean O2 and keep sat >90 2. Continue antibiotics. 3. Nebs qid , duoneb 4. Bipap at HS 12/5 if sats <88 5. MRI today 6. Cont prednisone 10 mg bid Angel Sprague MD Jun 19, 2017 17:40
[2017-06-19] MEDS: LATANOPROST 0.005% OPHT SOLN 2.5 ML BTL EACH EYE SCH (22:14)
[2017-06-20] VITALS (28 sets, daily range): BP systolic 110–149; BP diastolic 69–82; PULSE 65–98; RESP 18–20; TEMP 97.5–99; O2SAT 92–99
[2017-06-20] MEDS: HEPARIN SODIUM - SQ 10,000 UNITS/ML VIAL SQ SCH ×2 (03:18→14:23)
[2017-06-20] MEDS: ACETAMINOPHEN/HYDROcodone 325 MG/5 MG TAB PO PRN ×4 (03:18→21:54)
[2017-06-20] MEDS: LEVOTHYROXINE SODIUM 112 MCG TAB PO SCH (06:09)
[2017-06-20] MEDS: RESP: ALBUTEROL 2.5 MG/IPRATROPIUM 0.5 MG NEB (SCH) NEB ×4 (07:58→19:29)
[2017-06-20] MEDS ORDERED: HYDR-3533 PO (08:23)
[2017-06-20] MEDS ORDERED: PRED10 PO (08:23)
[2017-06-20] MEDS ORDERED: METO25TA3 PO (08:23)
[2017-06-20] MEDS ORDERED: NEUR300C PO (08:23)
--- NOTE | 2017-06-20 08:55 | HHI.PR ---
Subjective Remarks Follow-up for L4 compression fracture, COPD, SVT. Patient is currently doing well. Denies any chest pain, shortness of breath, fever or chills. Her heart rate is well controlled. She is waiting for lumbar MRI ordered by neurosurgery. Objective Vitals Vital Signs Date Time Temp Pulse Resp B/P (MAP) Pulse Ox O2 Delivery O2 Flow Rate FiO2 06/20/17 08:01 97 Nasal Cannula 5.00 06/20/17 07:40 97 Room Air 6.00 06/20/17 07:21 98.4 82 20 118/76 (90) 97 06/20/17 07:00 84 06/20/17 06:00 78 06/20/17 05:00 76 06/20/17 04:00 65 06/20/17 03:10 97.5 81 18 149/81 (103) 99 06/20/17 03:10 99 Nasal Cannula 6.00 06/20/17 03:00 76 06/20/17 02:00 79 06/20/17 01:00 77 06/20/17 00:00 87 06/19/17 23:05 98.5 81 20 148/66 (93) 98 06/19/17 23:05 98 Nasal Cannula 6.00 06/19/17 23:00 81 06/19/17 22:00 84 06/19/17 22:00 88 Nasal Cannula 6.00 06/19/17 21:00 86 06/19/17 20:45 98.2 90 22 114/73 (87) 90 06/19/17 20:45 90 Nasal Cannula 5.00 06/19/17 20:31 96 Nasal Cannula 5.00 06/19/17 20:00 84 06/19/17 19:00 84 06/19/17 17:00 86 06/19/17 16:00 88 06/19/17 15:18 93 Nasal Cannula 5.00 06/19/17 15:17 82 06/19/17 15:16 98.7 82 20 117/69 (85) 93 06/19/17 14:00 88 06/19/17 13:05 84 06/19/17 12:44 110 06/19/17 12:00 82 06/19/17 11:21 98.7 90 20 104/66 (79) 91 06/19/17 11:00 82 06/19/17 11:00 96 Nasal Cannula 5.00 06/19/17 10:09 90 Nasal Cannula 5.00 06/19/17 10:00 89 06/19/17 09:00 89 I/O 06/19/17 06/19/17 06/19/17 06/20/17 06/20/17 06/20/17 07:00 15:00 23:00 07:00 15:00 23:00 Intake Total 240 ml 820 ml 480 ml Output Total 650 ml 425 ml Balance -410 ml 820 ml 55 ml Intake Oral 240 ml 820 ml 480 ml Output Urine Total 650 ml 425 ml # Voids 2 3 # Bowel Movements 0 Result Diagram: 06/17/17 0455 06/19/17 [address] Angiography 06/16/17 1119 Signed Impressions: Service Date/Time: Friday, June 16, 2017 12:19 - CONCLUSION: 1. No evidence of pulmonary embolism. 2. Severe pulmonary fibrosis and findings of pulmonary hypertension Denilson Merritt MD Chest X-Ray 06/16/17 0921 Signed Impressions: Service Date/Time: Friday, June 16, 2017 09:26 - CONCLUSION: Mild to moderate congestive failure. De Irizarry MD FACR Hip and Pelvis X-Ray 06/16/17 0000 Signed Impressions: Service Date/Time: Friday, June 16, 2017 11:25 - CONCLUSION: Degenerative changes, negative for fracture. De Irizarry MD FACR Objective Remarks GENERAL: Alert, oriented 3, NAD. SKIN: Warm and dry. HEAD: Normocephalic. EYES: No scleral icterus. No injection or drainage. NECK: Supple, trachea midline. No JVD or lymphadenopathy. CARDIOVASCULAR: Regular rate and rhythm without murmurs, gallops, or rubs. RESPIRATORY: Moderate air entry, no appreciable wheezing. Mild crackles. GASTROINTESTINAL: Abdomen soft, non-tender, nondistended. MUSCULOSKELETAL: No cyanosis, or edema. BACK: Nontender without obvious deformity. No CVA tenderness. A/P Problem List: (1) Compression fracture of L4 lumbar vertebra ICD Code: S32.040A - Wedge compression fracture of fourth lumbar vertebra, initial encounter for closed fracture (2) Hypothyroidism ICD Code: E03.9 - Hypothyroidism, unspecified (3) Pulmonary fibrosis ICD Code: J84.10 - Pulmonary fibrosis, unspecified (4) SVT (supraventricular tachycardia) ICD Code: I47.1 - Supraventricular tachycardia Status: Acute Assessment and Plan 77-year-old female presented for back pain and found to have SVT Intractable lower back pain secondary to compression fracture: Pain better controlled. - Lumbar CT from 06/15 showed acute mild compression deformity involving L4 without retropulsion, chronic compression deformity of L3. - Pain control with [place], IV morphine for breakthrough pain. - PT eval & Treat - Neurosurgery has evaluated patient: options of surgical vs. nonsurgical mgmgt. - Current plan is to continue conservative management including LSO brace. MRI lumbar spine ordered. - [facility] did not qualify patient. Discussed with CM regarding SNF placement. SVT: Converted to sinus tachycardia after receiving adenosine in the field. Heart rate currently in NSR on monitor. - Continue metoprolol 25mg TID. - Monitor on telemetry - Eval by cardiology, stable from cardiac standpoint per their note Severe pulmonary fibrosis Pulmonary hypertension - CT angiography of the lungs reviewed on 06/20/2017 - shows significant pulmonary fibrosis. - Nebs as needed - O2 as needed - Symbicort - Seen by pulmonology Dr. Vimal dinero who started patient on Prednisone 10 mg PO BID History of mycobacterial avium infection: Follows with ID, Dr. Shah - Continue Bactrim, ethambutol, rifabutin Hypothyroidism: Chronic, stable. - Continue levothyroxine 112 microgram Qday. Full code. DVT prophylaxis: Heparin SQ Discharge Planning In summary: this is a 77 yo female who re-presented to [facility] with intractable back pain after a fall. Seen initially in ER, d/c home with outpatient follow up. She was having significant pain so represented to the ER. At that time she was found to be in SVT. The patient has been seen and evaluated by cardiology and cleared from their standpoint. The patient has been seen and evaluated by neurosurgery. An lumbar MRI is ordered and pending. The patient has significant lung disease is not and is on 5 L of oxygen at home. She has been stable from a pulmonary standpoint. Placement to SNF is pending. If Lumbar MRI does not show anything significant, we will likely discharge patient to SNF today/tomorrow. Eligio Covington DO Jun 20, 2017 08:55
[2017-06-20] MEDS: SODIUM CHLORIDE 0.9% FLUSH 10 ML FLUSH IV FLUSH SCH ×2 (09:00→21:54)
[2017-06-20] MEDS: RIFABUTIN 150 MG PO SCH (09:23)
[2017-06-20] MEDS: predniSONE 10 MG TAB PO SCH (09:24)
[2017-06-20] MEDS: METOPROLOL TARTRATE 25 MG TAB PO SCH ×3 (09:24→17:41)
[2017-06-20] MEDS: GABAPENTIN 300 MG CAP PO SCH ×2 (09:24→21:53)
[2017-06-20] MEDS: SULFAMETHOXAZOLE-TRIMETHOPRIM DS 800-160 MG TAB PO SCH (09:46)
[2017-06-20] MEDS: ETHAMBUTOL HCL 400 MG TAB PO SCH ×2 (09:46→21:47)
[2017-06-20] MEDS: TIOTROPIUM BROMIDE 18 MCG INH INH SCH (10:34)
[2017-06-20] MEDS: BUDESONIDE-FORMOTEROL 160/4.5 MCG INHALER INH SCH ×2 (10:35→21:46)
[2017-06-20] MEDS: FLUTICASONE PROPIONATE 50 MCG/ACT 16 GM NASAL SPRAY NASAL SCH (10:36)
[2017-06-20] MEDS: MORPHINE SULFATE 4 MG/ML INJ IV PUSH PRN ×2 (11:20→16:42)
--- NOTE | 2017-06-20 14:00 | EKG ---
Date Performed: 06/19/2017 Time Performed: 11:41:34 PTAGE: 77 years EKG: Sinus rhythm Left anterior fascicular block Anteroseptal T wave changes are nonspecific Borderline ECG PREVIOUS TRACING : 06/16/2017 09.14 Poor R-wave progression, cannot rule out anteroseptal injur y - age undetermined, but also consistent with pulmonary disease. Clinical correlation recommended. DOCTOR: Román Ramsay Interpretating Date/Time 06/20/2017 13:58:07
[2017-06-20] MEDS ORDERED: ATROPINE SULFATE 1 MG/10 ML SYRINGE ONE (15:27)
[2017-06-20] MEDS ORDERED: EPINEPHrine HCL (1:10,000) 1 MG/10 ML SYRINGE ONE (15:27)
--- NOTE | 2017-06-20 17:58 | RADRPT ---
EXAM DATE/TIME: 06/20/2017 15:54 [facility] COMPARISON: CT LUMBAR SPINE W/O CONTRAST, June 15, 2017, 11:40. INDICATIONS : Pain. L4 compression fx. MEDICAL HISTORY : Carcinoma, ovarian. SURGICAL HISTORY : Hysterectomy. ENCOUNTER: Initial ACUITY: 2 day PAIN SCORE: 3/10 LOCATION: back TECHNIQUE: Multiplanar multisequence MRI of the lumbar spine was performed without contrast. FINDINGS: [id number] loss of height with marrow edema involves the inferior endplate of L4 compatible wit h an acute or subacute compression fracture. I don't see an associated bone lesion. No retropulsed fr acture fragments or fracture-associated foraminal stenosis demonstrated. Mild, chronic loss of height inferior endplate of L3. Broad protrusions are again noted similar to the CT at L3/L4, L4/L5 and L5/S1. There is mild osseous ridging at each level as well and with moderate bilateral facet osteoarthritis. There is mild to mode rate right and mild left foraminal stenosis at L4/L5. There is mild bilateral foraminal stenosis at L 5/S1. No high-grade spinal stenosis is demonstrated. Considerable fluid seen in the bilateral facets at L4/L5. CONCLUSION: 1. Mild to moderate acute or subacute L4 compression fracture without evidence of an underlying bone lesion. No fracture-associated foraminal or spinal stenosis. 2. Degenerative changes as above. Mild to moderate foraminal encroachment on the right at L4/L5. Othe rwise generally no or mild foraminal stenosis elsewhere. No significant spinal stenosis. 3. Facet synovitis at L4/L5. Adonis Espinoza MD on June 20, 2017 at 17:50 Board Certified Radiologist. This report was verified electronically.
--- NOTE | 2017-06-20 18:51 | HHI.PR ---
Subjective Remarks She feels better . On O2 at 4 L. Back pain as before and on PT. Objective Vital Signs Date Time Temp Pulse Resp B/P (MAP) Pulse Ox O2 Delivery O2 Flow Rate FiO2 06/20/17 17:01 86 06/20/17 16:00 85 06/20/17 15:15 92 Nasal Cannula 5.00 06/20/17 15:00 98.8 85 20 110/77 (88) 95 06/20/17 15:00 84 06/20/17 15:00 96 Room Air 6.00 06/20/17 14:00 86 06/20/17 13:00 92 06/20/17 12:00 90 06/20/17 11:00 98 06/20/17 11:00 98.2 85 20 110/77 (88) 95 06/20/17 11:00 20 06/20/17 11:00 94 Room Air 6.00 06/20/17 10:00 88 06/20/17 09:00 90 06/20/17 08:01 97 Nasal Cannula 5.00 06/20/17 08:00 84 06/20/17 07:40 97 Room Air 6.00 06/20/17 07:21 98.4 82 20 118/76 (90) 97 06/20/17 07:00 84 06/20/17 06:00 78 06/20/17 05:00 76 06/20/17 04:00 65 06/20/17 03:10 97.5 81 18 149/81 (103) 99 06/20/17 03:10 99 Nasal Cannula 6.00 06/20/17 03:00 76 06/20/17 02:00 79 06/20/17 01:00 77 06/20/17 00:00 87 06/19/17 23:05 98.5 81 20 148/66 (93) 98 06/19/17 23:05 98 Nasal Cannula 6.00 06/19/17 23:00 81 06/19/17 22:00 84 06/19/17 22:00 88 Nasal Cannula 6.00 06/19/17 21:00 86 06/19/17 20:45 98.2 90 22 114/73 (87) 90 06/19/17 20:45 90 Nasal Cannula 5.00 06/19/17 20:31 96 Nasal Cannula 5.00 06/19/17 20:00 84 06/19/17 19:00 84 I/O 06/19/17 06/19/17 06/19/17 06/20/17 06/20/17 06/20/17 06:59 14:59 22:59 06:59 14:59 22:59 Intake Total 240 ml 820 ml 480 ml Output Total 650 ml 425 ml Balance -410 ml 820 ml 55 ml Intake Oral 240 ml 820 ml 480 ml Output Urine Total 650 ml 425 ml # Voids 2 3 # Bowel Movements 0 Result Diagram: 06/17/17 0455 06/19/17 0708 Objective Remarks GENERAL: This is a moderately obese elderly white female who is alert, pale and not dyspneic. She has mild clubbing. No peripheral edema. HEENT: Head normocephalic. Pupils are reactive. Tongue is dry. Throat is clear. Nasal mucosa injected. NECK: Supple. No venous distension. No thyromegaly or lymphadenopathy. CHEST: Decreased breath sounds at the bases with fine basilar crackles. HEART: The heart sounds are irregular S1 and S2 with no murmur. No S3 gallop. ABDOMEN: Soft, protuberant without masses. No organomegaly or tenderness. EXTREMITIES: No edema. Peripheral pulses were decreased NEUROLOGIC: Reflexes are 1+ with no gross motor deficits. Cranial nerves grossly intact. SKIN: No lesions observed. Assessment and Plan Assessment and Plan IMPRESSION 1. Extensive pulmonary fibrosis with hypoxemia. 2. History of Mycobacterium Avium infection of the lungs 3. Lumbar compression fractures with radiculopathy 4. Hypothyroidism Plan : 1. Wean O2 and keep sat >90 2. Continue antibiotics. 3. Nebs qid , duoneb 4. Bipap at HS 12/5 if sats <88 5. Physiotherapy and rehab placement. 6. Cont prednisone 10 mg daily. Angel Sprague MD Jun 20, 2017 18:51
[2017-06-20] MEDS: LATANOPROST 0.005% OPHT SOLN 2.5 ML BTL EACH EYE SCH (21:00)
[2017-06-20] MEDS ORDERED: BISACODYL 10 MG SUPP RECTAL PRN (21:15)
[2017-06-20] MEDS ORDERED: LACTULOSE SYRUP 20 GM/30 ML CUP PO PRN (21:15)
[2017-06-20] MEDS ORDERED: SENNOSIDES 8.6 MG TAB PO PRN (21:15)
[2017-06-20] MEDS ORDERED: MAGNESIUM HYDROXIDE SUSP 30 ML CUP PO PRN (21:15)
[2017-06-21] VITALS (22 sets, daily range): BP systolic 107–127; BP diastolic 65–69; PULSE 76–116; RESP 20–24; TEMP 98–98.4; O2SAT 91–100
[2017-06-21] MEDS: HEPARIN SODIUM - SQ 10,000 UNITS/ML VIAL SQ SCH ×2 (03:15→13:43)
[2017-06-21] MEDS: MORPHINE SULFATE 4 MG/ML INJ IV PUSH PRN ×2 (04:01→14:56)
[2017-06-21] MEDS: LEVOTHYROXINE SODIUM 112 MCG TAB PO SCH (06:19)
[2017-06-21] MEDS: ACETAMINOPHEN/HYDROcodone 325 MG/5 MG TAB PO PRN ×2 (06:19→11:24)
[2017-06-21] MEDS: RESP: ALBUTEROL 2.5 MG/IPRATROPIUM 0.5 MG NEB (SCH) NEB ×3 (07:28→15:33)
[2017-06-21] MEDS: RIFABUTIN 150 MG PO SCH (08:08)
[2017-06-21] MEDS: GABAPENTIN 300 MG CAP PO SCH (08:09)
[2017-06-21] MEDS: ETHAMBUTOL HCL 400 MG TAB PO SCH (08:09)
[2017-06-21] MEDS: TIOTROPIUM BROMIDE 18 MCG INH INH SCH (08:11)
[2017-06-21] MEDS: BUDESONIDE-FORMOTEROL 160/4.5 MCG INHALER INH SCH (08:11)
[2017-06-21] MEDS: METOPROLOL TARTRATE 25 MG TAB PO SCH ×2 (08:12→13:42)
[2017-06-21] MEDS: FLUTICASONE PROPIONATE 50 MCG/ACT 16 GM NASAL SPRAY NASAL SCH (08:12)
[2017-06-21] MEDS ORDERED: predniSONE 10 MG TAB PO SCH (09:00)
[2017-06-21] MEDS: SODIUM CHLORIDE 0.9% FLUSH 10 ML FLUSH IV FLUSH SCH (09:00)
--- NOTE | 2017-06-21 10:54 | HHI.PR ---
Subjective Remarks Follow-up L4 compression fracture/SVT 06/21/17-patient seen and examined, complains of back pain this morning, no chest pain or shortness of breath Objective Vitals Vital Signs Date Time Temp Pulse Resp B/P (MAP) Pulse Ox O2 Delivery O2 Flow Rate FiO2 06/21/17 07:30 98.3 87 20 107/69 (82) 93 06/21/17 07:30 100 Nasal Cannula 5.00 06/21/17 07:00 84 06/21/17 06:04 83 06/21/17 05:00 80 06/21/17 04:04 18 06/21/17 04:00 116 06/21/17 03:00 95 Nasal Cannula 6.00 06/21/17 03:00 98.0 78 20 127/65 (85) 95 06/21/17 03:00 80 06/21/17 02:00 80 06/21/17 01:00 80 06/21/17 00:00 80 06/20/17 23:00 84 06/20/17 23:00 99.0 80 20 130/82 (98) 97 06/20/17 23:00 97 Nasal Cannula 6.00 06/20/17 22:56 20 06/20/17 22:00 88 06/20/17 21:00 84 06/20/17 20:00 88 06/20/17 19:00 92 Nasal Cannula 6.00 06/20/17 19:00 98.1 87 20 113/69 (84) 92 06/20/17 19:00 84 06/20/17 18:00 90 06/20/17 17:01 86 06/20/17 16:00 85 06/20/17 15:15 92 Nasal Cannula 5.00 06/20/17 15:00 98.8 85 20 110/77 (88) 95 06/20/17 15:00 84 06/20/17 15:00 96 Room Air 6.00 06/20/17 14:00 86 06/20/17 13:00 92 06/20/17 12:00 90 06/20/17 11:00 98 06/20/17 11:00 98.2 85 20 110/77 (88) 95 06/20/17 11:00 94 Room Air 6.00 I/O 9/5/17 9/506/20/17 06/21/17 06/21/17 06/21/17 07:00 15:00 23:00 07:00 15:00 23:00 Intake Total 480 ml 860 ml 240 ml Output Total 425 ml 700 ml 425 ml Balance 55 ml 160 ml -185 ml Intake Oral 480 ml 860 ml 240 ml Output Urine Total 425 ml 700 ml 425 ml # Bowel Movements 0 Result Diagram: 06/17/17 0455 06/19/17 0708 Imaging Last Impressions Lumbar Spine MRI 06/20/17 0000 Signed Impressions: Service Date/Time: Tuesday, June 20, 2017 15:54 - CONCLUSION: 1. Mild to moderate acute or subacute L4 compression fracture without evidence of an underlying bone lesion. No fracture-associated foraminal or spinal stenosis. 2. Degenerative changes as above. Mild to moderate foraminal encroachment on the right at L4/L5. Otherwise generally no or mild foraminal stenosis elsewhere. No significant spinal stenosis. 3. Facet synovitis at L4/L5. Adonis Espinoza MD CT Angiography 06/16/17 1119 Signed Impressions: Service Date/Time: Friday, June 16, 2017 12:19 - CONCLUSION: 1. No evidence of pulmonary embolism. 2. Severe pulmonary fibrosis and findings of pulmonary hypertension Denilson Merritt MD Chest X-Ray 06/16/17 0921 Signed Impressions: Service Date/Time: Friday, June 16, 2017 09:26 - CONCLUSION: Mild to moderate congestive failure. De Irizarry MD FACR Hip and Pelvis X-Ray 06/16/17 0000 Signed Impressions: Service Date/Time: Friday, June 16, 2017 11:25 - CONCLUSION: Degenerative changes, negative for fracture. De Irizarry MD FACR Objective Remarks GENERAL: NAD SKIN: Warm and dry. HEAD: Normocephalic. EYES: No scleral icterus. No injection or drainage. NECK: Supple, trachea midline. No JVD or lymphadenopathy. CARDIOVASCULAR: Regular rate and rhythm without murmurs, gallops, or rubs. RESPIRATORY: Breath sounds equal bilaterally. No accessory muscle use. GASTROINTESTINAL: Abdomen soft, non-tender, nondistended. MUSCULOSKELETAL: No cyanosis, or edema. BACK:tender without obvious deformity. No CVA tenderness. Procedures none A/P Problem List: (1) Compression fracture of L4 lumbar vertebra ICD Code: S32.040A - Wedge compression fracture of fourth lumbar vertebra, initial encounter for closed fracture (2) Hypothyroidism ICD Code: E03.9 - Hypothyroidism, unspecified (3) Pulmonary fibrosis ICD Code: J84.10 - Pulmonary fibrosis, unspecified (4) SVT (supraventricular tachycardia) ICD Code: I47.1 - Supraventricular tachycardia Status: Acute Assessment and Plan 77-year-old female with Intractable lower back pain secondary to compression fracture: Pain better controlled. - Lumbar CT from 06/15 showed acute mild compression deformity involving L4 without retropulsion, chronic compression deformity of L3. -Lumbar MRI 06/20/17 noted and reviewed by me with finding of mild to moderate acute or subacute L4 compression fracture - Neurosurgery has evaluated patient: options of surgical vs. nonsurgical mgmgt. - Current plan is to continue conservative management including LSO brace. Continue with current parenteral pain management as well as PT - Likely discharged to SNF SVT: Heart rate currently in NSR on monitor. - Continue metoprolol 25mg TID. - Monitor on telemetry - Appreciate input from cardiology who has cleared patient for discharge Severe pulmonary fibrosis Pulmonary hypertension - CT angiography of the lungs reviewed on 06/20/2017 - shows significant pulmonary fibrosis. - Continue with prednisone, DuoNeb,Symbicort and maintain oxygen saturation above 92%. - Appreciate input from pulmonary medicine History of mycobacterial avium infection: Follows with ID, Dr. Shah - Continue Bactrim, ethambutol, rifabutin Hypothyroidism: - Continue levothyroxine 112 microgram Qday. Full code. DVT prophylaxis: Heparin SQ Discharge Planning Likely discharge to SNF Ty Eller MD Jun 21, 2017 10:54
--- NOTE | 2017-06-21 13:07 | HHI.DS ---
Discharge Summary Admission Date Jun 16, 2017 at 13:25 Discharge Date: Jun 21, 2017 Admitting Diagnosis SVT, hypoxia (1) Compression fracture of L4 lumbar vertebra ICD Code: S32.040A - Wedge compression fracture of fourth lumbar vertebra, initial encounter for closed fracture (2) Hypothyroidism ICD Code: E03.9 - Hypothyroidism, unspecified (3) Pulmonary fibrosis ICD Code: J84.10 - Pulmonary fibrosis, unspecified (4) SVT (supraventricular tachycardia) ICD Code: I47.1 - Supraventricular tachycardia Status: Acute Procedures none Brief History - From Admission Written by Butch Ferrara, acting as scribe for Dr. Machuca on 06/16/17 at 16:01. 77-year-old female with past medical history of COPD, hypothyroidism, SVT, Mycobacterium avium infection, hypertensive pneumonitis who presented for back pain. The patient states that yesterday she noticed a chair when she tried to sit and landed on her backside. She went to the ED and was found to have a mild compression fracture at L4. She was neurologically intact and the decision was made to have her follow-up as outpatient with neurosurgery. However, overnight the patient had worsening symptoms and this morning woke up and was unable to move her right hip secondary to pain and thus she called the paramedics. When the paramedics arrived the patient was noted to be in SVT, which she has a history of, with a heart rate of 168 and received adenosine. The patient denies any symptoms from this. She states that her breathing is at baseline, normally on 5 L O2 at home. She denies any chest pain. Her director of resource development is Dr. Fair. Her director ambulatory is Dr. Lamb. At this time other than the lower back and right hip pain, the patient has no acute complaints and feels well. She would be agreeable to short-term rehabilitation if she is unable to ambulate. CBC/BMP: 06/17/17 0455 06/19/17 0708 Significant Findings Laboratory Tests Test 06/19/17 07:08 Blood Urea Nitrogen 19 MG/DL (7-18) Random Glucose 111 MG/DL (74-106) Estimat Glomerular Filtration Rate 59 ML/MIN (>89) Imaging Last Impressions Lumbar Spine MRI 06/20/17 0000 Signed Impressions: Service Date/Time: Tuesday, June 20, 2017 15:54 - CONCLUSION: 1. Mild to moderate acute or subacute L4 compression fracture without evidence of an underlying bone lesion. No fracture-associated foraminal or spinal stenosis. 2. Degenerative changes as above. Mild to moderate foraminal encroachment on the right at L4/L5. Otherwise generally no or mild foraminal stenosis elsewhere. No significant spinal stenosis. 3. Facet synovitis at L4/L5. Adonis Espinoza MD CT Angiography 06/16/17 1119 Signed Impressions: Service Date/Time: Friday, June 16, 2017 12:19 - CONCLUSION: 1. No evidence of pulmonary embolism. 2. Severe pulmonary fibrosis and findings of pulmonary hypertension Denilson Merritt MD Chest X-Ray 06/16/17 0921 Signed Impressions: Service Date/Time: Friday, June 16, 2017 09:26 - CONCLUSION: Mild to moderate congestive failure. De Irizarry MD FACR Hip and Pelvis X-Ray 06/16/17 0000 Signed Impressions: Service Date/Time: Friday, June 16, 2017 11:25 - CONCLUSION: Degenerative changes, negative for fracture. De Irizarry MD FACR PE at Discharge GENERAL: NAD SKIN: Warm and dry. HEAD: Normocephalic. EYES: No scleral icterus. No injection or drainage. NECK: Supple, trachea midline. No JVD or lymphadenopathy. CARDIOVASCULAR: Regular rate and rhythm without murmurs, gallops, or rubs. RESPIRATORY: Breath sounds equal bilaterally. No accessory muscle use. GASTROINTESTINAL: Abdomen soft, non-tender, nondistended. MUSCULOSKELETAL: No cyanosis, or edema. BACK:tender without obvious deformity. No CVA tenderness. Hospital Course 77 yo female who re-presented to [facility] with intractable back pain after a fall. Seen initially in ER, d/c home with outpatient follow up. She was having significant pain so represented to the ER. At that time she was found to be in SVT. The patient has been seen and evaluated by cardiology and she remained stable on Lopressor 25 mg 3 times a day. The patient has been seen and evaluated by neurosurgery who advised to continue with conservative management including LSO brace, PT and pain management. Pulmonary medicine was consulted secondary to patient with history of severe pulmonary fibrosis and she was started on prednisone and continue on DuoNeb,Symbicort with her oxygen saturation maintained above 92%. She was continued on her treatment for mycobacteria avium infections with Bactrim, ethambutol, rifabutin. DVT and GI prophylaxis were provided. Pt Condition on Discharge: Stable Discharge Disposition: Discharge to SNF Discharge Time: > 30 minutes Discharge Instructions DIET: Follow Instructions for: Heart Healthy Diet Activities you can perform: Regular-No Restrictions Follow up Referrals: Neurosurgery PCP Follow-up - 2-3 Days New Medications: Gabapentin (Neurontin) 300 Mg Cap 300 MG PO BID for Pain Management, #60 CAP Metoprolol Tartrate (Metoprolol Tartrate) 25 Mg Tab 25 MG PO TID for Heart, #90 TAB Prednisone (Prednisone) 10 Mg Tab 10 MG PO BID for Inflammation for 30 Days, TAB Continued Medications: Ethambutol (Ethambutol) 400 Mg Tab 1 TAB PO BID Fluticasone Nasal Gordon (Flonase Nasal Gordon) 50 Mcg/Act Gordon 50 MCG EACH NARE DAILY for Allergies, #1 BOTTLE 0 Refills Fluticasone-Salmeterol Inh (Advair Diskus Inh) 250-50 Mcg/Blist Aer 1 PUFF INH BID, #1 INHALER 0 Refills Rinse mouth after use. Hydrocodone-Acetaminophen (Lortab) 5-325 Mg Tab 1 TAB PO Q6H PRN for PAIN, #28 TAB 0 Refills (This prescription has been renewed ) Ibandronate (Ibandronate) 150 Mg Tab 150 MG PO Q28D, #1 TAB 0 Refills Latanoprost Opth Drops (Latanoprost Opth Drops) 0.005% Drops 1 DROP EACH EYE HS for Glaucoma, #2.5 ML 0 Refills Refrigerate until opened. Levothyroxine (Synthroid) 112 Mcg Tab 112 MCG PO DAILY for Thyroid, #30 TAB 0 Refills Rifabutin (Rifabutin) 150 Mg Cap 1 CAP PO BID Sulfamethoxazole-Trimethoprim (Sulfamethoxazole-Trimethoprim) 800-160 Mg Tab 1 TAB PO [id number] for Infection, TAB 0 Refills Tiotropium Inh (Spiriva Respimat Inh) 2.5 Mcg/Act Aero 2 PUFF INH DAILY for COPD, #1 INHALER 0 Refills 2.5 mcg = 1 inhalation Discontinued Medications: Metoprolol Tartrate (Metoprolol Tartrate) 25 Mg Tab 25 MG PO BID, #60 TAB 0 Refills Prednisone (Prednisone) 10 Mg Tab 15 MG PO DAILY, TAB 0 Refills Ty Eller MD Jun 21, 2017 13:07
[2017-07-13] MEDS ORDERED: IBANDRONATE 150 MG PO SCH (09:00)
== END 2017-06-21 17:42 | DRG 552 ==
LOC: NEPC 09:04 → NEDH 13:16 → OBSVTOIN 13:25 → HCIS 18:22
PROVIDERS: ADMIT Hospitalist; ATTEND Hospitalist
DX: S32.048A Other fracture of fourth lumbar vertebra, initial encounter for closed fracture (principal); I47.1 Supraventricular tachycardia; J84.10 Pulmonary fibrosis, unspecified; Z99.81 Dependence on supplemental oxygen; J44.9 Chronic obstructive pulmonary disease, unspecified; R09.02 Hypoxemia; W19.XXXA Unspecified fall, initial encounter; M81.0 Age-related osteoporosis without current pathological fracture; E03.9 Hypothyroidism, unspecified; M48.06 Spinal stenosis, lumbar region; M43.16 Spondylolisthesis, lumbar region; M54.16 Radiculopathy, lumbar region; Z85.43 Personal history of malignant neoplasm of ovary; I10 Essential (primary) hypertension; E66.3 Overweight; Z68.29 Body mass index [BMI] 29.0-29.9, adult; Z87.891 Personal history of nicotine dependence; M19.049 Primary osteoarthritis, unspecified hand; M17.9 Osteoarthritis of knee, unspecified; Y92.511 Restaurant or cafe as the place of occurrence of the external cause
CPT/HCPCS: 71010; 71275; 72131; 72148; 73502; 80048; 80053; 82550; 83690; 83735; 83880; 84443; 84484; 85025; 85610; 85730; 93005; 94640; 94664; 96361; 96374; 99284; J0171; J0461; J1644; J2270; J2920; J2930; J7040; J7512; J7613; L0484; Q9967